=== PATIENT | female | born 1970 | race Caucasian/White ===

== ENCOUNTER 2020-03-28 09:08 | Outpatient (REF) | payer OTHER, SELFPAY ==
[2020-03-28 11:40] LABS: Hemoglobin 13.3 g/dl (12.0-16.0); Mean Corpuscular HGB Conc 32.4 g/dl (31.0-35.0); Mean Corpuscular Hemoglobin 30.3 pg (27.0-33.0); Mean Corpuscular Volume 93.4 fL (80-98); Mean Platelet Volume 9.1 fL (9.4-12.3); Platelet Count 271 X10*3/uL (160-400); Red Blood Count 4.39 X10*6/uL (4.20-5.50); Red Cell Distribution Width 12.4 % (11.0-16.0); White Blood Count 7.6 X10*3/uL (4.8-10.8)
[2020-03-28 12:02] LABS: Glucose Urine UA NEG (NEG); Leukocyte Esterase Urine NEG (NEG); Nitrite Urine NEG (NEG); PH 5.5 (5.0-8.0); Specific Gravity - Urine >= 1.030 (1.005-1.025); Urine Blood NEG (NEG); Urine Ketones NEG (NEG); Urine Protein NEG (NEG-TRACE)
[2020-03-28 12:05] LABS: Appearance Urine HAZY; Color Urine YELLOW
[2020-03-28 12:18] LABS: Alanine Aminotransferase 45 U/L (0-31); Albumin Level 4.2 g/dL (3.5-5.0); Alkaline Phosphatase 111 U/L (39-117); Anion Gap 16 (12-20); Aspartate Amino Transferase 30 U/L (5-31); Blood Urea Nitrogen 13 mg/dL (9-16); Calcium 9.3 mg/dL (8.4-10.2); Carbon Dioxide 27 mmol/L (22-29); Chloride 102 mmol/L (96-108); Cholesterol 157 mg/dL; Estimated Glomerular Filt Rate > 60; Glucose Fasting 83 mg/dL (60-99); HDL Cholesterol 68 mg/dL; LDL Cholesterol Calculated 78 mg/dl; Potassium 4.9 mmol/l (3.3-5.1); Sodium 140 mmol/L (135-145); Total Protein 7.2 g/dL (6.5-8.0); Triglycerides 57 mg/dL
[2020-03-28 12:25] LABS: Mucus Urine 3+ /LPF; RBC Urine 0 /HPF (0); Squamous Epithelial Cell Urine 1+ /LPF; WBC Urine 0 /HPF (0-4)
== END 2020-03-28 09:09 | disposition home or self-care (01) ==
LOC: HO.HMGCLDS 09:08
PROVIDERS: PCP Internal Medicine; Visit Provider Internal Medicine
DX: Z00.00 Encounter for general adult medical examination without abnormal findings (principal); F41.9 Anxiety disorder, unspecified
CPT/HCPCS: 36415; 80053; 80061; 81001; 84443; 85027

== ENCOUNTER 2020-07-08 07:48 | Outpatient (REF) | payer OTHER, SELFPAY ==
[2020-07-08 09:49] LABS: Alanine Aminotransferase 38 U/L (0-31); Albumin Level 3.8 g/dL (3.5-5.0); Alkaline Phosphatase 100 U/L (39-117); Aspartate Amino Transferase 22 U/L (5-31); Bilirubin Direct 0.5 mg/dL (0.0-0.5); Bilirubin Total 1.3 mg/dL (0.0-1.0); Total Protein 6.5 g/dL (6.5-8.0)
== END 2020-07-08 07:49 | disposition home or self-care (01) ==
LOC: HO.10HDL 07:48
PROVIDERS: Visit Provider Internal Medicine
DX: R94.5 Abnormal results of liver function studies (principal)
CPT/HCPCS: 36415; 80076

== ENCOUNTER → 2020-07-14 14:31 | Outpatient (BNVA) | payer OTHER, SELFPAY | PROVIDERS: PCP Internal Medicine; Visit Provider Internal Medicine Cardiovascular Disease | DX: I47.2 Ventricular tachycardia (principal); I25.10 Atherosclerotic heart disease of native coronary artery without angina pectoris | CPT/HCPCS: 93005 ==

== ENCOUNTER → 2021-07-17 15:10 | Outpatient (BNVA) | payer OTHER, SELFPAY | PROVIDERS: PCP Internal Medicine; Referring Provider Internal Medicine; Visit Provider Internal Medicine Cardiovascular Disease | DX: I47.2 Ventricular tachycardia (principal); I25.10 Atherosclerotic heart disease of native coronary artery without angina pectoris; R07.89 Other chest pain | CPT/HCPCS: 93005 ==

== ENCOUNTER 2021-09-30 12:07 | Outpatient (REF) | payer OTHER, SELFPAY ==
[2021-09-30 13:25] LABS: Hematocrit 37.8 % (37.0-47.0); Hemoglobin 12.6 g/dl (12.0-16.0); Mean Corpuscular HGB Conc 33.3 g/dl (31.0-35.0); Mean Corpuscular Hemoglobin 30.3 pg (27.0-33.0); Mean Corpuscular Volume 90.9 fL (80.0-98.0); Mean Platelet Volume 9.4 fL (9.4-12.3); Platelet Count 268 X10*3/uL (160-400); Red Blood Count 4.16 X10*6/uL (4.20-5.50); Red Cell Distribution Width 12.4 % (11.0-16.0); White Blood Count 7.2 X10*3/uL (4.8-10.8)
[2021-09-30 13:33] LABS: Alanine Aminotransferase 34 U/L (0-31); Alkaline Phosphatase 125 U/L (39-117); Anion Gap 13 (12-20); Aspartate Amino Transferase 24 U/L (5-31); Bilirubin Total 1.4 mg/dL (0.0-1.0); Blood Urea Nitrogen 10 mg/dL (9-16); Calcium 9.3 mg/dL (8.4-10.2); Carbon Dioxide 26 mmol/L (22-29); Chloride 104 mmol/L (96-108); Cholesterol 144 mg/dL; Estimated Glomerular Filt Rate > 60; Glucose Fasting 82 mg/dL (60-99); HDL Cholesterol 54 mg/dL; LDL Cholesterol Calculated 77 mg/dl; Potassium 4.5 mmol/L (3.3-5.1); Sodium 138 mmol/L (135-145); Triglycerides 68 mg/dL
[2021-09-30 13:34] LABS: Appearance Urine HAZY; Color Urine YELLOW; Glucose Urine UA NEG (NEG); Leukocyte Esterase Urine NEG (NEG); Nitrite Urine NEG (NEG); Specific Gravity - Urine >= 1.030 (1.005-1.025); Urine Blood NEG (NEG); Urine Ketones NEG (NEG); Urine Protein NEG (NEG-TRACE)
[2021-09-30 13:50] LABS: Bacteria Urine 3+ /LPF; Squamous Epithelial Cell Urine 3+ /LPF
== END 2021-09-30 12:08 | disposition home or self-care (01) ==
LOC: HO.HMGCLDS 12:07
PROVIDERS: PCP Internal Medicine; Visit Provider Internal Medicine
DX: Z00.00 Encounter for general adult medical examination without abnormal findings (principal); I25.10 Atherosclerotic heart disease of native coronary artery without angina pectoris; R00.2 Palpitations
CPT/HCPCS: 36415; 80053; 80061; 81001; 84443; 85027

== ENCOUNTER 2021-12-15 08:00 | Outpatient (RCR) | payer OTHER, SELFPAY ==
--- NOTE | 2022-02-13 09:56 | MHC.PT.DC ---
[facility] [place] Office [place] Office [place] Office [address] Minna Lopez [address] [phone] F: [phone] F: [phone] F: [phone] F: [phone] Physical Therapy Discharge Report Diagnosis: NECK AND SHOULDER PAIN (KP0 Date of Surgery: Date of Evaluation: 11/07/21 Date of Discharge: 01/11/22 Treatments to Date: 9 Cancellations to Date: 3 No Shows to Date: 0 Discharge Status: Patient Elected to Stop Discharge Summary: Magdalena was progressing well with PT, had to cancel last scheduled appointments and we have no heard back from her so she is dced at this time. She does have a comprehensive home exercise program which she can continue independently. Electronically signed by: Suzy Mccurdy PT, DPT Please sign and return to therapist. Thank you for your referral.
== END 2022-02-13 09:56 | disposition home or self-care (01) ==
LOC: HO.PT 08:00
PROVIDERS: PCP Internal Medicine; Visit Provider Internal Medicine
DX: M54.2 Cervicalgia (principal)
CPT/HCPCS: 97110; 97140; 97162; 97530

== ENCOUNTER 2022-05-18 10:40 | Outpatient (REF) | payer OTHER, SELFPAY ==
[2022-05-18 12:47] LABS: Alanine Aminotransferase 32 U/L (0-31); Albumin Level 4.1 g/dL (3.5-5.0); Alkaline Phosphatase 125 U/L (39-117); Anion Gap 13 (12-20); Aspartate Amino Transferase 26 U/L (5-31); Bilirubin Total 1.1 mg/dL (0.0-1.0); Blood Urea Nitrogen 14 mg/dL (9-16); Calcium 9.4 mg/dL (8.4-10.2); Carbon Dioxide 27 mmol/L (22-29); Chloride 106 mmol/L (96-108); Cholesterol 169 mg/dL; Estimated Glomerular Filt Rate > 60; Glucose Fasting 87 mg/dL (60-99); HDL Cholesterol 65 mg/dL; Potassium 4.9 mmol/L (3.3-5.1); Sodium 141 mmol/L (135-145); Total Protein 7.1 g/dL (6.5-8.0)
[2022-05-18 12:48] LABS: LDL Cholesterol Calculated 89 mg/dl; Triglycerides 75 mg/dL
[2022-05-19 22:28] LABS: CRP High Sensitivity 1.5 mg/L
[2022-05-21 09:43] LABS: HBc Num1 0.06 S/CO (0.00-0.79); Hepatitis B Core Antibody Nonreactive (Nonreactive); Hepatitis B Surface Antigen Negative (Negative); ~HepC Num1 0.12 S/CO (0.00-0.79); ~Hepatitis B Surface Antibody NONREACTIVE (Nonreactive); ~Hepatitis C Antibody Nonreactive (Nonreactive)
== END 2022-05-18 10:41 | disposition home or self-care (01) ==
LOC: HO.LAB 10:40
PROVIDERS: PCP Internal Medicine; Visit Provider Internal Medicine
DX: R79.89 Other specified abnormal findings of blood chemistry (principal); E78.5 Hyperlipidemia, unspecified
CPT/HCPCS: 36415; 80053; 80061; 86141; 86704; 86706; 86803; 87340

== ENCOUNTER 2022-05-31 08:56 | Outpatient (REF) | payer OTHER, SELFPAY ==
--- NOTE | ~2022-05-31 | US_ITS ---
EXAMINATION: US ABDOMEN COMPLETE CLINICAL INFORMATION: Other specified abnormal findings of blood chemistry. COMPARISON: None TECHNIQUE: Real-time imaging of the abdominal viscera. FINDINGS: PANCREAS: Normal. ABDOMINAL AORTA: The proximal, mid, and distal segments are normal in caliber. INFERIOR VENA CAVA: Visualized portions are normal. LIVER: The liver is normal in size. The liver contour is normal. There is diffuse increased liver parenchymal echogenicity. No focal hepatic lesion. There is no intrahepatic biliary duct dilatation seen. GALLBLADDER: Normal. The gallbladder is physiologically distended without evidence of stones, sludge, polyps, wall thickening or pericholecystic fluid. COMMON BILE DUCT: Normal in caliber measuring 0.4 cm in diameter. RIGHT KIDNEY: Normal. No hydronephrosis. No renal calculi or focal parenchymal lesions. The kidney measures 11.9 cm in maximum dimension. LEFT KIDNEY: Normal. No hydronephrosis. No renal calculi or focal parenchymal lesions. The kidney measures 10.2 cm in maximum dimension. SPLEEN: Normal. The spleen measures 9.9 cm in maximum dimension. FREE FLUID: None. US/US abdomen complete IMPRESSION: There is generalized increase in hepatic echotexture, consistent with fatty infiltration or hepatocellular disease. Please correlate clinically. No focal hepatic mass or intrahepatic biliary dilatation is seen.
== END 2022-05-31 08:57 | disposition home or self-care (01) ==
LOC: HO.HMGCX 08:56
PROVIDERS: PCP Internal Medicine; Visit Provider Internal Medicine
DX: R79.89 Other specified abnormal findings of blood chemistry (principal)
CPT/HCPCS: 76700

== ENCOUNTER → 2022-07-25 10:13 | Outpatient (BNVA) | payer OTHER, SELFPAY | PROVIDERS: PCP Internal Medicine; Referring Provider Internal Medicine; Visit Provider Internal Medicine Cardiovascular Disease | DX: I25.10 Atherosclerotic heart disease of native coronary artery without angina pectoris (principal); I47.20 Ventricular tachycardia, unspecified | CPT/HCPCS: 93005 ==

== ENCOUNTER → 2022-08-01 07:55 | Outpatient (REF) | payer OTHER, SELFPAY ==
--- NOTE | 2022-08-01 07:57 | CA_ITS ---
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 The visually estimated ejection fraction is between 60-65%. Spectral Doppler is indicative of a normal filling pattern. Peak GLS is -22.7%, within normal limits. Right Ventricle Normal right ventricular cavity size and systolic function. Atria The left atrium is likely dilated. There is lipomatous hypertrophy of the interatrial septum. There is no evidence of interatrial shunt. The right atrium is normal in size. Aortic Valve Normal aortic valve structure and function. There is no aortic valve stenosis. There is no aortic valve regurgitation. Mitral Valve Normal mitral valve structure and function. There is trace mitral valve regurgitation. There is no mitral valve stenosis. Pulmonic Valve The pulmonic valve is likely normal. There is trace pulmonic valve regurgitation. Tricuspid Valve Normal tricuspid valve structure. There is trace tricuspid valve regurgitation. The right ventricular systolic pressure is normal. The right ventricular systolic pressure is 21 mmHg. Normal right atrial pressure. There is no evidence of pulmonary hypertension. Great Vessels All visible segments of the aorta are normal in size. The pulmonary artery was not well visualized. Venous The inferior vena cava is normal in size and collapses greater than 50% with inspiration. Pericardium/Pleural There is no evidence of pericardial effusion. Measurements 2D Linear Measurements RVIDd: 3.45 RVIDd Index: 1.84 IVSd: 1.08 0.6-0.9/0.6-1.0 cm LVIDd: 4.15 3.9-5.3/4.2-5.9 cm LVIDd Index: 2.22 2.4-3.2/2.2-3.1 cm/m2 LVIDs: 2.81 2.0-3.6 cm LVPWd: 1.02 0.7-1.1 cm Ao Root: 3.60 2.1-3.5 cm LA Diam: 3.10 2.7-3.8/3.0-4.0 cm LAIDs Index: 1.66 1.5-2.3 cm/m2 LV Mass: 179.57 67-162/88-224 g LV Mass Index: 96.03 43-95/49-115 g/m2 LVOT Diam: 2.20 3.0+(-)1.3 cm 2D Systolic Function EF 4C: 62.20 >55% EF 2C: 53.90 >55% EF BiP: 58.80 >55% Mitral Valve MV Pk E: 0.72 MV PK A: 0.66 MV Decel Time: 192.00 E/A: 1.10 E'Lateral: 11.60 E'Medial: 8.27 E/E' Med: 8.70 E/E' Lat: 6.20 PHT: 56.00 MVA PHT: 3.93 Decel [place]: 3.77 Aortic Valve AoV Pk Ministerio: 1.33 AoV Mn Ministerio: 0.88 AoV VTI: 0.34 AoV Pk Grad: 7.00 Aov Mn Grad: 4.00 JAVIER Cont.VTI: 2.52 LVOT LVOT Pk Ministerio: 1.04 LVOT Mn Ministerio: 0.57 LVOT VTI: 0.23 LVOT Pk Grad: 4.00 LVOT Mn Grad: 2.00 LVOT Diam: 2.20 LVOT Area: 3.80 Diastolic Function MV Pk E: 0.72 MV Pk A: 0.66 E/A: 1.10 E'Medial: 8.27 E/E' Med: 8.70 E' Laterial: 11.60 E/E' Lat: 6.20 Right Ventricle TAPSE (mm): 27.00 TVS' Ministerio: 12.00 Tricuspid Valve TR Pk Ministerio: 2.10 TR Pk Grad: 18.00 RA Press: 3.00 RVSP: 21.00 Great Vessels Aorta Ao Root-2D: 3.60 2.0-3.7 cm Ao Asc: 3.30 2.1-3.4 cm Ao Arch: 2.60 Pulmonary Valve PV Pk Ministerio: 0.77 Peak PV Grad: 2.00 Updated in Other Vendor System with Status of Final Justyn Durán MD electronically signed on 08/01/2022 1:07:08 PM with status of Final
== END ==
LOC: HO.CARD 07:55
PROVIDERS: PCP Internal Medicine; Visit Provider Internal Medicine Cardiovascular Disease
DX: R94.31 Abnormal electrocardiogram [ECG] [EKG] (principal)
CPT/HCPCS: 93306; 93356

== ENCOUNTER 2022-11-23 10:02 | Outpatient (AMB) | payer OTHER, SELFPAY ==
[2022-11-23 10:03] VITALS: BP 104/70; PULSE 59; O2SAT 96; BMI 28.5
--- NOTE | 2022-11-23 10:03 | A.OFFPC_ITS ---
Vital Signs 11/23/22 10:03 Height 5 ft 5 in Weight 171 lb BMI 28.5 BP 104/70 Blood Pressure Location Lt brachial Position Sitting Pulse 59 Pulse Source Pulse Oximeter Pulse Oximetry (%) 96 Oxygen Delivery Method Room Air Intake Visit Reasons: 6 month follow up Intake Note: Pt dayanara today for 6 months follow up visit. Allergies No Known Allergies [No Known Allergies*] Allergy (Verified 11/23/22 10:04) Medication List - Last Reconciled 11/23/22 by Marily Ramos MD aspirin (Ecotrin Low Strength) 81 mg PO DAILY atorvastatin 80 mg PO DAILY escitalopram oxalate 15 mg PO DAILY lorazepam 0.25 mg PO BID PRN propranolol ER 60 mg PO DAILY Tobacco use date assessed: 11/23/22 Dental Screening Dental Screen Date: 11/23/22 Did you have a dental visit in the last 12 months?: Yes Did you have a dental problem in the last 6 months where you did not have access to dental care?: No Was dental information given to patient?: Patient has dentist HPI 6 month follow up HPI Details Patient presents for the follow-up of hyperlipidemia chronic anxiety and nonsustained SVT. Patient follows up with Cardiology and had a normal echocardiogram last month. [facility] Medical History Annual physical exam Anxiety disorder Coronary artery disease Cubital tunnel syndrome Elevated LFTs Mammogram normal Neck pain Normal Pap smear NSVT (nonsustained ventricular tachycardia) Palpitations Family History Father CAD (coronary artery disease) Myocardial infarction CVD (cardiovascular disease) Mother COPD (chronic obstructive pulmonary disease) Smoker Breast cancer Maternal Grandfather CAD (coronary artery disease) CVD (cardiovascular disease) Maternal Grandmother Breast cancer Paternal Grandfather COPD (chronic obstructive pulmonary disease) Paternal Aunt CVD (cardiovascular disease) Myocardial infarction Son No problems noted. Sister No problems noted. Sister No problems noted. Sister No problems noted. 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 How often do you have a drink containing alcohol?: 2-3 times a week 2. How many drinks containing alcohol do you have on a typical day when you are drinking?: 1 or 2 3. How often do you have six or more drinks on one occasion?: Never Total Score: 3 CATHI-7 AMB Questionnaire CATHI-7 Date CATHI - 7 assessed: 05/21/22 Source: Developed by Drs. Lev Pfeiffer, Malu Crawford, Cain Garcia and colleagues, with an educational bina from [employer]. Review of Systems Const All systems reviewed & are unremarkable except as noted in HPI and below Reports no additional complaints Eyes Reports no additional complaints ENT Reports no additional complaints Card Reports no additional complaints Resp Reports no additional complaints GI Reports no additional complaints Reports no additional complaints Physical exam (Primary Care) Vital Signs: Last Vital Signs Pulse 59 11/23/22 10:03 BP 104/70 11/23/22 10:03 Pulse Ox 96 11/23/22 10:03 Oxygen Delivery Method Room Air 11/23/22 10:03 BMI result Body Mass Index 28.5 Tobacco/Smoking Status: Tobacco use Status Tobacco use date assessed 11/23/22 11/23/22 10:08 Patient Tobacco Use Status Current someday Tobacco 11/23/22 10:04 e-Cigarette/Vaping Use Never Used 11/23/22 10:04 Thrive Assessment: Date of Thrive Assessment Date Thrive assessed 05/21/22 11/23/22 10:04 Const General: no acute distress Neck Neck: Yes no lymphadenopathy and Yes supple Resp Effort & Inspection: normal respiratory effort Auscultation: clear to auscultation bilaterally Cardio Rhythm: regular rhythm Heart sounds: S1 normal heart sound present and S2 normal heart sound present GI Inspection: Yes normal to inspection Palpation (GI): Soft to palpation Assessment and Plan Assessment & Plan (1) Elevated LFTs: Comment: ultrasound showed fatty liver 08/02 Code(s): R79.89 - Other specified abnormal findings of blood chemistry Plan: Patient will have labs today (2) Hyperlipemia: Code(s): E78.5 - Hyperlipidemia, unspecified Plan: Continue statin (3) Coronary artery disease: Comment: nonobstructive stenosis LAD cardiac catheterization 2017, managed medically Code(s): I25.10 - Atherosclerotic heart disease of [place] coronary artery without angina pectoris Plan: Follow-up with Cardiology Orders: Orders Comprehensive [place]. Panel Fast Today E78.5 - Hyperlipidemia, unspecified, I25.10 - Atherosclerotic heart disease of [place] coronary artery without angina pectoris, R79.89 - Other specified abnormal findings of blood chemistry Gamma Glutamyl Transpeptidase Today E78.5 - Hyperlipidemia, unspecified, I25.10 - Atherosclerotic heart disease of [place] coronary artery without angina pectoris, R79.89 - Other specified abnormal findings of blood chemistry Lipid Panel Today E78.5 - Hyperlipidemia, unspecified, I25.10 - Atherosclerotic heart disease of [place] coronary artery without angina pectoris, R79.89 - Other specified abnormal findings of blood chemistry TSH reflex Free T4 Today E78.5 - Hyperlipidemia, unspecified, I25.10 - Atherosclerotic heart disease of [place] coronary artery without angina pectoris, R79.89 - Other specified abnormal findings of blood chemistry Complete Blood Count Auto Diff Today E78.5 - Hyperlipidemia, unspecified, I25.10 - Atherosclerotic heart disease of [place] coronary artery without angina pectoris, R79.89 - Other specified abnormal findings of blood chemistry Liver Kidney Microsomal Ab Today E78.5 - Hyperlipidemia, unspecified, I25.10 - Atherosclerotic heart disease of [place] coronary artery without angina pectoris, R79.89 - Other specified abnormal findings of blood chemistry Mitochondrial Antibody Today E78.5 - Hyperlipidemia, unspecified, I25.10 - Atherosclerotic heart disease of [place] coronary artery without angina pectoris, R79.89 - Other specified abnormal findings of blood chemistry FREDERICK Reflex Titer and Pattern Today E78.5 - Hyperlipidemia, unspecified, I25.10 - Atherosclerotic heart disease of [place] coronary artery without angina pectoris, R79.89 - Other specified abnormal findings of blood chemistry Coding Level of Care Code Est Pt Level 3 (18962) Diagnoses Elevated LFTs R79.89 Hyperlipemia E78.5 Coronary artery disease I25.10
== END 2022-11-23 11:33 | disposition home or self-care (01) ==
PROVIDERS: Visit Provider Internal Medicine
DX: R79.89 Other specified abnormal findings of blood chemistry (principal); E78.5 Hyperlipidemia, unspecified; I25.10 Atherosclerotic heart disease of native coronary artery without angina pectoris
CPT/HCPCS: 99213

== ENCOUNTER 2022-11-23 10:41 | Outpatient (REF) | payer OTHER, SELFPAY ==
[2022-11-23 13:25] LABS: MANUAL DIFF FLAG NO
[2022-11-23 13:37] LABS: Basophils Percent Auto 0.4 % (0-2); Eosinophils Absolute Auto 0.4 X10*3/uL (0.0-0.4); Hematocrit 40.3 % (37.0-47.0); Hemoglobin 13.3 g/dl (12.0-16.0); Imm Gran Abs Auto 0.02 X10*3/uL (0.00-0.03); Imm Gran Pct Auto 0.3 % (0.0-0.4); Lymphocytes Absolute Auto 2.7 X10*3/uL (1.2-4.9); Lymphocytes Percent Auto 38.3 % (20-40); Mean Corpuscular Volume 93.9 fL (80.0-98.0); Mean Platelet Volume 9.3 fL (9.4-12.3); Monocytes Absolute Auto 0.5 X10*3/uL (0.1-1.2); Neutrophils Absolute Auto 3.5 x10*3/uL (2.0-8.3); Platelet Count 258 X10*3/uL (160-400); Red Blood Count 4.29 X10*6/uL (4.20-5.50)
[2022-11-23 15:23] LABS: Alanine Aminotransferase 52 U/L (0-31); Albumin Level 4.1 g/dL (3.5-5.0); Alkaline Phosphatase 114 U/L (39-117); Anion Gap 11 (12-20); Aspartate Amino Transferase 33 U/L (5-31); Blood Urea Nitrogen 11 mg/dL (9-16); Carbon Dioxide 28 mmol/L (22-29); Chloride 107 mmol/L (96-108); Cholesterol 161 mg/dL; Estimated Glomerular Filt Rate > 60; Gamma Glutamyl Transpeptidase 36 U/L (7-33); Glucose Fasting 76 mg/dL (60-99); HDL Cholesterol 59 mg/dL; LDL Cholesterol Calculated 86 mg/dl; Potassium 4.1 mmol/L (3.3-5.1); Sodium 142 mmol/L (135-145); Total Protein 7.3 g/dL (6.5-8.0); Triglycerides 81 mg/dL
[2022-11-23 15:49] LABS: TSH reflex Free T4 0.76 uIU/mL (0.32-4.0)
[2022-11-27 11:13] LABS: Mitochondrial Antibodies NEGATIVE (NEGATIVE)
[2022-11-27 15:43] LABS: Anti Nuclear Antibody Screen NEGATIVE (NEGATIVE)
[2022-11-28 22:38] LABS: Liver Kidney Microsomal Ab <=20.0 U (<=20.0)
== END 2022-11-23 10:42 | disposition home or self-care (01) ==
LOC: HO.HMGCLDS 10:41
PROVIDERS: PCP Internal Medicine; Visit Provider Internal Medicine
DX: I25.10 Atherosclerotic heart disease of native coronary artery without angina pectoris (principal); E78.5 Hyperlipidemia, unspecified; R79.89 Other specified abnormal findings of blood chemistry
CPT/HCPCS: 36415; 80053; 80061; 82977; 84443; 85025; 86038; 86255; 86256; 86376

== ENCOUNTER 2023-05-23 07:55 | Outpatient (AMB) | payer OTHER, SELFPAY ==
[2023-05-23 08:12] VITALS: BP 108/72; PULSE 67; O2SAT 96; BMI 29.6
--- NOTE | 2023-05-23 08:12 | MHC.PC.OV ---
Vital Signs 05/23/23 08:12 Height 5 ft 5 in Weight 178 lb BMI 29.6 BP 108/72 Blood Pressure Location Lt brachial Position Sitting Pulse 67 Pulse Source Pulse Oximeter Pulse Oximetry (%) 96 Oxygen Delivery Method Room Air Intake Visit Reasons: Annual PE Intake Note: Pt is here today for PE. Allergies No Known Allergies [No Known Allergies*] Allergy (Verified 05/23/23 08:15) Medication List - Last Reconciled 05/23/23 by Marily Ramos MD aspirin (Ecotrin Low Strength) 81 mg PO DAILY atorvastatin 80 mg PO DAILY escitalopram oxalate 15 mg PO DAILY lorazepam 0.25 mg PO BID PRN propranolol ER 60 mg PO DAILY Tobacco use date assessed: 05/23/23 Dental Screening Dental Screen Date: 05/23/23 Did you have a dental visit in the last 12 months?: Yes Did you have a dental problem in the last 6 months where you did not have access to dental care?: No Was dental information given to patient?: Patient has dentist HPI Annual PE HPI Details Patient presents for physical. She complains of chronic left knee pain worse when walking or standing up. Patient has been limiting with her routine exercise of jogging. She denies any recent injury but was involved with sports when she was younger. Patient denies joint swelling or erythema. [facility] Medical History Cubital tunnel syndrome Neck pain NSVT (nonsustained ventricular tachycardia) Elevated LFTs Coronary artery disease Mammogram normal Normal Pap smear Annual physical exam Anxiety disorder Palpitations Family History Father CAD (coronary artery disease) Myocardial infarction CVD (cardiovascular disease) Mother COPD (chronic obstructive pulmonary disease) Smoker Breast cancer Maternal Grandfather CAD (coronary artery disease) CVD (cardiovascular disease) Maternal Grandmother Breast cancer Paternal Grandfather COPD (chronic obstructive pulmonary disease) Paternal Aunt CVD (cardiovascular disease) Myocardial infarction Son No problems noted. Sister No problems noted. Sister No problems noted. Sister No problems noted. 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 1. Little interest or pleasure in doing things: not at all 2. Feeling down, depressed, or hopeless: not at all 3. Trouble falling or staying asleep, or sleeping too much: not at all 4. Feeling tired or having little energy: not at all 5. Poor appetite or overeating: not at all 6. Feeling bad about yourself - or that you are a failure or have let yourself or your family down: not at all 7. Trouble concentrating on things, such as reading the newspaper or watching television: not at all 8. Moving or speaking so slowly that other people could have noticed. Or the opposite - being so fidgety or restless that you have been moving around a lot more than usual: not at all 9. Thoughts that you would be better off or of hurting yourself in some way: not at all Total score: 0 Depression Screening Interpretation: Negative Depression Screening Done: Yes Source: Developed by Drs. Lev Pfeiffer, Malu Crawford, Cain Garcia and colleagues, with an educational bina from [employer]. Thrive Questionnaire Date Thrive assessed: 05/23/23 I am a: Patient What is your living situation today?: I have a steady place to live Within the past 12 months, did the food you bought not last and you didn't have the money to get more?: Never true Within the past 12 months, did you worry whether your food would run out before you got money to buy more?: Never true Do you have trouble paying for medicines?: No Do you have trouble getting transportation to medical appointments?: No Do you have trouble paying your heating and electricity bill?: No Do you have trouble taking care of your child, family member or friend?: No Do you have trouble with day-to-day activities such as bathing, preparing meals, shopping, managing finances, etc.?: No Are you currently unemployed and looking for a job?: No Are you interested in more education?: No Please select the resources that you would like help with: None AUDIT C Alcohol Use Questionnaire (AUDIT-C) 1. How often do you have a drink containing alcohol?: 2-3 times a week 2. How many drinks containing alcohol do you have on a typical day when you are drinking?: 3 or 4 3. How often do you have six or more drinks on one occasion?: Less than monthly Total Score: 5 CATHI-7 AMB Questionnaire CATHI-7 Date CATHI - 7 assessed: 05/23/23 Feeling nervous, anxious, or on edge: 1 = Several days Not being able to stop or control worryin = Several days Worrying too much about different things: 1 = Several days Trouble relaxin = Not at all Being so restless that it is hard to sit still: 0 = Not at all Becoming easily annoyed or irritable: 1 = Several days Feeling afraid as if something awful might happen: 1 = Several days Total CATHI-7 score (0-4 normal; 5-9 mild; 10-14 moderate; 15-21 severe): 5 Source: Developed by Drs. Lev Pfeiffer, Malu Crawford, Cain Garcia and colleagues, with an educational bina from [employer]. Review of Systems Const All systems reviewed & are unremarkable except as noted in HPI and below Reports no additional complaints Eyes Reports no additional complaints ENT Reports no additional complaints Card Reports no additional complaints Resp Reports no additional complaints GI Reports no additional complaints Reports no additional complaints Physical exam (Primary Care) Vital Signs: Last Vital Signs Pulse 67 05/23/23 08:12 BP 108/72 05/23/23 08:12 Pulse Ox 96 05/23/23 08:12 Oxygen Delivery Method Room Air 05/23/23 08:12 BMI result Body Mass Index 29.6 Tobacco/Smoking Status: Tobacco use Status Tobacco use date assessed 05/23/23 05/23/23 08:18 Patient Tobacco Use Status Former Tobacco user 05/23/23 08:18 e-Cigarette/Vaping Use Never Used 05/23/23 08:13 PHQ-9: PHQ-9 Score PHQ-9: Total score 0 05/23/23 08:22 Depression Screening Interpretation: Negative Thrive Assessment: Date of Thrive Assessment Date Thrive assessed 05/23/23 05/23/23 08:22 Const General: no acute distress HENMT Head: Yes normal to inspection Ears: hearing grossly normal bilaterally Face and sinus: Yes normal facial exam Throat: Yes posterior oropharynx normal Eyes General: appearance normal, both eyes and all related structures Neck Neck: Yes no lymphadenopathy and Yes supple Resp Effort & Inspection: normal respiratory effort Auscultation: clear to auscultation bilaterally Cardio Rhythm: regular rhythm Heart sounds: S1 normal heart sound present and S2 normal heart sound present GI Inspection: Yes normal to inspection Palpation (GI): Soft to palpation Percussion: Yes normal to percussion Auscultation: normal bowel sounds Extrem Other: There has a decreased range of motion the left knee no soft tissue swelling erythema warmth or tenderness General: Yes no clubbing, cyanosis or edema Assessment and Plan Assessment & Plan (1) Knee pain, left: Code(s): M25.562 - Pain in left knee Plan: For chronic left knee pain check x-rays and patient was advised to start regular biking exercises. If the pain persist she will be referred to physical therapy (2) Hyperlipemia: Comment: The goal of LDL less than 70 Code(s): E78.5 - Hyperlipidemia, unspecified Plan: Continue high dose of statin, patient will return for fasting lipid profile. She will follow-up with Cardiology in July (3) Elevated LFTs: Comment: ultrasound showed fatty liver 08/02 Code(s): R79.89 - Other specified abnormal findings of blood chemistry Plan: Cutting down on alcohol intake avoid [id number] NSAIDs and weight loss discussed with patient. 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 Panel Fast Today E78.5 - Hyperlipidemia, unspecified, R79.89 - Other specified abnormal findings of blood chemistry Complete Blood Count Auto Diff Today E78.5 - Hyperlipidemia, unspecified, R79.89 - Other specified abnormal findings of blood chemistry Lipid Panel Today E78.5 - Hyperlipidemia, unspecified, R79.89 - Other specified abnormal findings of blood chemistry TSH reflex Free T4 Today E78.5 - Hyperlipidemia, unspecified Coding Level of Care Code Est Pt Prev Care 40-64y(94811) Diagnoses Knee pain, left M25.562 Hyperlipemia E78.5 Elevated LFTs R79.89 Annual physical exam Z00.00
== END 2023-05-23 09:37 | disposition home or self-care (01) ==
PROVIDERS: PCP Internal Medicine; Visit Provider Internal Medicine
DX: M25.562 Pain in left knee (principal); E78.5 Hyperlipidemia, unspecified; R79.89 Other specified abnormal findings of blood chemistry; Z00.00 Encounter for general adult medical examination without abnormal findings
CPT/HCPCS: 99396

== ENCOUNTER 2023-07-25 10:34 | Outpatient (REF) | payer OTHER, SELFPAY ==
[2023-07-25 10:49] LABS: MANUAL DIFF FLAG NO
[2023-07-25 11:55] LABS: Basophils Percent Auto 0.6 % (0-2); Eosinophils Absolute Auto 0.3 X10*3/uL (0.0-0.4); Eosinophils Percent Auto 4.3 % (0-4); Hematocrit 39.1 % (37.0-47.0); Hemoglobin 13.3 g/dl (12.0-16.0); Imm Gran Abs Auto 0.01 X10*3/uL (0.00-0.03); Imm Gran Pct Auto 0.1 % (0.0-0.4); Lymphocytes Absolute Auto 3.2 X10*3/uL (1.2-4.9); Lymphocytes Percent Auto 46.3 % (20-40); Mean Corpuscular Hemoglobin 31.3 pg (27.0-33.0); Mean Platelet Volume 8.9 fL (9.4-12.3); Monocytes Absolute Auto 0.4 X10*3/uL (0.1-1.2); Monocytes Percent Auto 6.5 % (2-11); Neutrophils Absolute Auto 2.9 x10*3/uL (2.0-8.3); Neutrophils Percent Auto 42.2 % (45-73); Platelet Count 240 X10*3/uL (160-400); Red Blood Count 4.25 X10*6/uL (4.20-5.50); Red Cell Distribution Width 12.3 % (11.0-16.0); White Blood Count 6.8 X10*3/uL (4.8-10.8)
[2023-07-25 12:27] LABS: Alanine Aminotransferase 56 U/L (0-31); Albumin Level 3.9 g/dL (3.5-5.0); Alkaline Phosphatase 122 U/L (39-117); Anion Gap 12 (12-20); Aspartate Amino Transferase 39 U/L (5-31); Blood Urea Nitrogen 8 mg/dL (9-16); Calcium 9.1 mg/dL (8.4-10.2); Carbon Dioxide 26 mmol/L (22-29); Chloride 108 mmol/L (96-108); Cholesterol 146 mg/dL (<200); Estimated Glomerular Filt Rate > 60; Glucose Fasting 71 mg/dL (60-99); HDL Cholesterol 58 mg/dL (>40); LDL Cholesterol Calculated 72 mg/dL (<100); Potassium 4.2 mmol/L (3.3-5.1); Sodium 142 mmol/L (135-145); Triglycerides 81 mg/dL (<150)
[2023-07-25 12:46] LABS: TSH reflex Free T4 0.88 uIU/mL (0.32-4.0)
[2023-07-26 09:48] LABS: LDL Cholesterol Direct 72 mg/dL (<100)
== END 2023-07-25 10:35 | disposition home or self-care (01) ==
LOC: HO.LAB 10:34
PROVIDERS: PCP Internal Medicine; Visit Provider Internal Medicine
DX: E78.5 Hyperlipidemia, unspecified (principal); R79.89 Other specified abnormal findings of blood chemistry
CPT/HCPCS: 36415; 80053; 80061; 83721; 84443; 85025

== ENCOUNTER 2023-07-29 08:24 | Outpatient (AMB) | payer OTHER, SELFPAY ==
[2023-07-29 08:33] VITALS: BP 110/70; PULSE 62; BMI 29.0
--- NOTE | 2023-07-29 08:33 | A.OFFVIS_ITS ---
Intake Vital Signs 07/29/23 08:33 Height 5 ft 5 in Weight 174 lb 2.643 oz BMI 29.0 BP 110/70 Blood Pressure Location Lt brachial Position Sitting Pulse 62 Intake Visit Reasons: 1 yr f/up lipids Intake Note: 1 year follow-up with ekg Line Out Man Required: No Allergies No Known Allergies [No Known Allergies*] Allergy (Verified 05/23/23 08:15) HPI HPI Comments History of Present Illness Details Sally comes for follow-up. Overall she has been doing well. She says that she has not been exercising as regularly as she has in the past. She does have knee issues from prior running. Otherwise she is able to maintain activity level without any restriction. Denies any chest pain. She says when she stretches her chest backwards, she does get some cracking and discomfort in his chest in the sternal area. But no chest tightness or pain with exertion or activity. Takes all her medications. Last LDL has improved to 72, she says this is related to improve diet. [facility] Medical History Cubital tunnel syndrome Neck pain NSVT (nonsustained ventricular tachycardia) Elevated LFTs Coronary artery disease Mammogram normal Normal Pap smear Annual physical exam Anxiety disorder Palpitations Family History Father CAD (coronary artery disease) Myocardial infarction CVD (cardiovascular disease) Mother COPD (chronic obstructive pulmonary disease) Smoker Breast cancer Maternal Grandfather CAD (coronary artery disease) CVD (cardiovascular disease) Maternal Grandmother Breast cancer Paternal Grandfather COPD (chronic obstructive pulmonary disease) Paternal Aunt CVD (cardiovascular disease) Myocardial infarction Son No problems noted. Sister No problems noted. Sister No problems noted. Sister No problems noted. 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 Housing: House Alcohol intake: current Alcohol intake frequency: a few times a week Alcohol type: wine Patient Tobacco Use Status: Former Tobacco user e-Cigarette/Vaping Use: Never Used service: No Current occupational status: employed Cognitive needs: No Hearing needs: No Vision needs: Yes Review of Systems Const Denies chills, Denies fatigue, Denies fever(s), Denies frequent falls, Denies weakness, Denies weight gain and Denies weight loss ENT Denies dizziness Card Denies chest pain, Denies leg edema, Denies lightheadedness, Denies palpitations, Denies dyspnea, Denies dyspnea on exertion, Denies orthopnea and Denies other (loss of consciousness) Resp Denies cough, Denies dyspnea and Denies dyspnea on exertion GI Denies hematochezia and Denies change in stool character Musc Denies abnormal gait, Denies muscle weakness, Denies numbness, Denies radiating pain into limb and Denies tingling Neuro Denies abnormal gait, Denies dizziness, Denies frequent falls, Denies numbness, Denies tingling and Denies weakness Endo Denies fatigue and Denies palpitations Physical Exam Vital Signs: Last Vital Signs Pulse 62 07/29/23 08:33 BP 110/70 07/29/23 08:33 BMI result Body Mass Index 29.0 Const General: cooperative, comfortable, no acute distress, alert and awake Nutritional Appearance: average body habitus Orientation/consciousness: patient oriented x3 Limitations: no limitations Neck Neck: Yes trachea midline, Yes supple and Yes no JVD Resp Effort & Inspection: normal respiratory effort Auscultation: clear to auscultation bilaterally Cardio Jugular venous distension: no JVD Palpation: normal PMI Rate: regular rate Rhythm: regular rhythm Heart sounds: S1 normal heart sound present and S2 normal heart sound present GI Auscultation: normal bowel sounds Skin General skin exam: no rashes or lesions noted Neuro General: patient oriented x3 and no focal motor deficits Extrem General: Yes no clubbing, cyanosis or edema Psych Appearance: grossly normal Office Procedures EKG Details: EKG shows normal sinus rhythm with T-wave inversions in the anterior anterolateral leads. There is slightly more prominent than before [id number], Complete Assessment & Plan Assessment & Plan (1) Coronary artery disease: Comment: nonobstructive stenosis LAD cardiac catheterization 2017, managed medically Code(s): I25.10 - Atherosclerotic heart disease of [place] coronary artery without angina pectoris Plan: Coronary artery disease nonobstructive by cardiac catheterization in the LAD territory with EKG changes although no new symptoms with exertion. Her echocardiogram last year was within normal limits. Given that she has no new symptoms with good activity level at this point time I would continue medical therapy. Continue low-dose aspirin therapy. Continue high-intensity statin therapy with target goal LDL closer to 70 mg/dL. Better optimized advised to continue to maintain activity level as tolerated. (2) NSVT (nonsustained ventricular tachycardia): Code(s): I47.2 - Ventricular tachycardia Plan: Prior history of nonsustained VT without any obvious clear clinical recurrence. Avoidance of stimulants was discussed. Stress mitigation strategies was discussed. Continue propranolol therapy. She is tolerating this well. Will follow up in the clinic in 1 year's time, sooner p.r.n.. Thank you for allowing me to partake in the care Coding Level of Care Code Est Pt Level 4 (98462) Diagnoses Coronary artery disease I25.10 NSVT (nonsustained ventricular tachycardia) I47.2 CPT Codes EKG - CPT: 25527-Iyegkeokcwrhhitau, Complete ([id number])
== END 2023-07-29 08:59 | disposition home or self-care (01) ==
PROVIDERS: Visit Provider Internal Medicine Cardiovascular Disease
DX: I25.10 Atherosclerotic heart disease of native coronary artery without angina pectoris (principal); I47.20 Ventricular tachycardia, unspecified
CPT/HCPCS: 93010; 99214

== ENCOUNTER → 2023-07-29 08:24 | Outpatient (BNVA) | payer OTHER, SELFPAY | PROVIDERS: Visit Provider Internal Medicine Cardiovascular Disease | DX: I25.10 Atherosclerotic heart disease of native coronary artery without angina pectoris (principal); I47.20 Ventricular tachycardia, unspecified | CPT/HCPCS: 93005 ==

== ENCOUNTER → 2024-07-23 23:59 | Outpatient (BNV) | payer OTHER, SELFPAY | PROVIDERS: PCP Internal Medicine; Visit Provider Internal Medicine Cardiovascular Disease | DX: I21.4 Non-ST elevation (NSTEMI) myocardial infarction (principal) | CPT/HCPCS: 93458; 99152 ==

== ENCOUNTER 2024-07-28 13:58 | Outpatient (AMB) | payer OTHER, SELFPAY ==
[2024-07-28 14:01] VITALS: BP 108/64; PULSE 64; RESP 18; TEMP 37.3; O2SAT 97; BMI 29.0
--- NOTE | 2024-07-28 14:01 | A.OFFPC_ITS ---
Vital Signs 07/28/24 14:01 Height 5 ft 5 in Weight 174 lb BMI 29.0 BP 108/64 Blood Pressure Location Lt brachial Position Sitting Respiration 18 Pulse 64 Pulse Source Pulse Oximeter Temp 99.1 F Temp Source Oral Pulse Oximetry (%) 97 Oxygen Delivery Method Room Air Intake Visit Reasons: ER follow up Intake Note: Pt is here today for Hospital follow up visit. Allergies No Known Allergies [No Known Allergies*] Allergy (Verified 07/28/24 14:04) Medication List - Last Reconciled 07/28/24 by Marily Ramos MD amlodipine 2.5 mg PO DAILY aspirin (Ecotrin Low Strength) 81 mg PO DAILY atorvastatin 80 mg PO DAILY escitalopram oxalate 15 mg PO DAILY lorazepam 0.5 mg PO BID PRN propranolol ER 60 mg PO DAILY Tobacco use date assessed: 07/28/24 Dental Screening Dental Screen Date: 07/28/24 Did you have a dental visit in the last 12 months?: Yes Did you have a dental problem in the last 6 months where you did not have access to dental care?: No Was dental information given to patient?: Patient has dentist HPI ER follow up HPI Details Pt presents for a follow-up hospitalization at [facility] then transferred to [facility] for question of vasovagal episodes with transitional ST elevation in anterior leads and elevated troponin. Patient had negative cardiac cath and normal echocardiogram at [facility]. She was discharged home on amlodipine. Pt reports being under a lot of stress, work related and feeling overwhelmed and anxious. Patient used to see a counselor who retired recently. She used to exercise but stopped because of her family and work related difficulty. She is established with psychiatric prescriber and has been taking escitalopram for 2 years. Patient denies insomnia or suicide ideation. She has been drinking every night 1-2 glasses of wine to relax and would like to cut down on alcohol intake. [facility] Medical History (Updated 07/28/24 @ 15:11 by Marily Ramos MD) Cubital tunnel syndrome Neck pain NSVT (nonsustained ventricular tachycardia) Elevated LFTs Coronary artery disease Mammogram normal Normal Pap smear Annual physical exam Anxiety disorder Palpitations Family History Father CAD (coronary artery disease) Myocardial infarction CVD (cardiovascular disease) Mother COPD (chronic obstructive pulmonary disease) Smoker Breast cancer Maternal Grandfather CAD (coronary artery disease) CVD (cardiovascular disease) Maternal Grandmother Breast cancer Paternal Grandfather COPD (chronic obstructive pulmonary disease) Paternal Aunt CVD (cardiovascular disease) Myocardial infarction Son No problems noted. Sister No problems noted. Sister No problems noted. Sister No problems noted. 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 1. Little interest or pleasure in doing things: not at all 2. Feeling down, depressed, or hopeless: not at all 3. Trouble falling or staying asleep, or sleeping too much: not at all 4. Feeling tired or having little energy: not at all 5. Poor appetite or overeating: not at all 6. Feeling bad about yourself - or that you are a failure or have let yourself or your family down: not at all 7. Trouble concentrating on things, such as reading the newspaper or watching television: not at all 8. Moving or speaking so slowly that other people could have noticed. Or the opposite - being so fidgety or restless that you have been moving around a lot more than usual: not at all 9. Thoughts that you would be better off or of hurting yourself in some way: not at all Total score: 0 Depression Screening Interpretation: Negative Depression Screening Done: Yes 02151 - PHQ-9 Billing: Yes Source: Developed by Drs. Lev Pfeiffer, Malu Crawford, Cain Garcia and colleagues, with an educational bina from [employer]. Thrive Questionnaire Date Thrive assessed: 07/28/24 I am a: Patient What is your living situation today?: I choose not to answer this question Within the past 12 months, did the food you bought not last and you didn't have the money to get more?: I choose not to answer this question Within the past 12 months, did you worry whether your food would run out before you got money to buy more?: I choose not to answer this question Do you have trouble paying for medicines?: I choose not to answer this question Do you have trouble getting transportation to medical appointments?: I choose not to answer this question Do you have trouble paying your heating and electricity bill?: I choose not to answer this question Do you have trouble taking care of your child, family member or friend?: I choose not to answer this question Do you have trouble with day-to-day activities such as bathing, preparing meals, shopping, managing finances, etc.?: I choose not to answer this question Are you currently unemployed and looking for a job?: I choose not to answer this question Are you interested in more education?: I choose not to answer this question THRIVE Score: 0 AUDIT C Alcohol Use Questionnaire (AUDIT-C) 1. How often do you have a drink containing alcohol?: Monthly or less 2. How many drinks containing alcohol do you have on a typical day when you are drinking?: 3 or 4 3. How often do you have six or more drinks on one occasion?: Less than monthly Total Score: 3 CATHI-7 AMB Questionnaire CATHI-7 Date CATHI - 7 assessed: 07/28/24 Feeling nervous, anxious, or on edge: 0 = Not at all Not being able to stop or control worryin = Not at all Worrying too much about different things: 0 = Not at all Trouble relaxin = Not at all Being so restless that it is hard to sit still: 0 = Not at all Becoming easily annoyed or irritable: 0 = Not at all Feeling afraid as if something awful might happen: 0 = Not at all Total CATHI-7 score (0-4 normal; 5-9 mild; 10-14 moderate; 15-21 severe): 0 Source: Developed by Drs. Lev Pfeiffer, Malu Crawford, Cain Garcia and colleagues, with an educational bina from [employer]. CATHI-7 Assessment Billing CATHI-7 Assessment Tool: CATHI-7 Assessment 73615 Review of Systems Const All systems reviewed & are unremarkable except as noted in HPI and below Eyes Reports no additional complaints ENT Reports no additional complaints Card Reports no additional complaints Resp Reports no additional complaints GI Reports no additional complaints Reports no additional complaints Physical exam (Primary Care) Vital Signs: Last Vital Signs Temp 99.1 F 07/28/24 14:01 Pulse 64 07/28/24 14:01 Resp 18 07/28/24 14:01 BP 108/64 07/28/24 14:01 Pulse Ox 97 07/28/24 14:01 Oxygen Delivery Method Room Air 07/28/24 14:01 BMI result Body Mass Index 29.0 Tobacco/Smoking Status: Tobacco use Status Tobacco use date assessed 07/28/24 07/28/24 14:02 Patient Tobacco Use Status Former Tobacco user 07/28/24 14:02 e-Cigarette/Vaping Use Never Used 07/28/24 14:02 Depression Screening Interpretation: Negative Thrive Assessment: Date of Thrive Assessment Date Thrive assessed 05/23/23 07/28/24 14:02 Const General: no acute distress HENMT Ears: hearing grossly normal bilaterally Neck Neck: Yes supple Resp Effort & Inspection: normal respiratory effort Auscultation: clear to auscultation bilaterally Cardio Rhythm: regular rhythm Heart sounds: S1 normal heart sound present and S2 normal heart sound present Coding Level of Care Code Est Pt Level 4 (17894) Diagnoses Coronary artery disease I25.10 Anxiety disorder F41.9 Additional Codes CATHI-7 Assessment Billing - CATHI-7 Assessment Tool: CATHI-7 Assessment 37627 ([id number]) PHQ-9 - 53751 - PHQ-9 Billing: Yes ([id number]) Assessment & Plan Assessment & Plan (1) Coronary artery disease: Comment: nonobstructive stenosis LAD cardiac catheterization 2016, managed medically, repeat cath no change, Echo nl 07/23/2024 [facility] for + troponin , started on Amlodipine 07/23/24 Code(s): I25.10 - Atherosclerotic heart disease of [place] coronary artery without angina pectoris Category: Medical Plan: Continue current medications follow-up with the Cardiology (2) Anxiety disorder: Comment: follows up with Psychiatry Code(s): F41.9 - Anxiety disorder, unspecified Category: Medical Plan: Stress management, mindfulness, regular physical activity discussed with the patient, cutting down on alcohol intake and quitting smoking recommended She will get reestablished with a counselor and continue to follow-up with psychiatric prescriber, ? increasing the dose of Lexapro to 20 mg a day. Follow-up in 2 months
--- OUTSIDE RECORDS SUMMARY | 2024-07-28 16:44 | XMS_ITS ---
Author Organization [facility] Address [address] [place] [address] Care Team Providers Care Clean Up Supervisor Name Role Phone Amber Contreras [phone] REASON FOR VISIT MRI May 2024 Encounters Encounter Location Date Provider Diagnosis [facility] [address] [place] [address] [address] [place] [address] 09/16/2023 Amber Contreras Plan Of Treatment Next Appt Details Provider Name:Amber obando, 09/16/2024 08:20:00 AM, [address], [address], [place], [address], Progress Notes * PAULINA JACOBOOB:1970 (53 yo F)Acc No.[id number]:09/16/2023 Patient:?ODALISMARLEENANDER :1970???Age:52 Y???Sex:Female Address:[address] [place] [address], [place], [address] * * Date:?
--- OUTSIDE RECORDS SUMMARY | 2024-07-28 16:45 | XMS_ITS ---
Author Organization [facility] Address [address] [place] [address] Care Team Providers Care Steel Finisher Name Role Phone Amber Contreras Unavailable [phone] Allergies No Known Allergies Results Component Value Reference Range Notes Urinalysis Reviewed date:09/16/2023 09:11:05 AM Interpretation: Performing Lab: Notes/Report: PH 5.0 PROTEIN Neg GLUCOSE Neg BLOOD Neg [id number] IGP No Culture 30 Plus Reviewed date:09/19/2023 04:19:35 PM Interpretation: Performing Lab:[facility] [place], [address], [address], [place], Phone - [phone], Director - [facility] Notes/Report: Clinical Information:Vaginal/Cervical, LMP: Men o [id number] Dates / Results....08/09/20 NIL, Neg HPV Other..............Post Menopausal No. of containers..01 ThinPrep Vial DIAGNOSIS: NEGATIVE FOR IN TRAEPITHELIAL LESION OR MALIGNANCY. Specimen adequacy: Satisfactory for evaluation. Endocervical and/or squamous metaplastic cells (endocervical component) are present. Clinician provided ICD10: Z0 1.419 Performed by: Sheri santa, Child Study Team Director (ASCP) . . Note: The Pap smear is a screening test designed to aid in the detection of premalignant and malignant conditions of the uterine cervix. It is not a diagnostic procedure and should not be used as the sole means of detecting cervical cancer. Both false-positive and false-negative reports do occur. . Test Methodology: This liquid based ThinPrep(R) pap test was screened with the use of an image guided system. HPV Aptima Negative Negative This nucleic acid amplification test detects fourteen high-risk HPV types (16,18,31,33,35,39,45,51,52,56,58 ,59,66,68) without differentiation. HPV Genotype Reflex Criteria not met, HPV Genotype not performed. PDF Report Reviewed date:09/19/2023 04:19:18 PM Interpretation: Performing Lab:[facility] [place], [address], [address], [place], Phone - [phone], Director - [facility] Notes/Report: Clinical Information:Vaginal/Cervical, LMP: Men o [id number] Dates / Results....08/09/20 NIL, Neg HPV Other..............Post Menopausal No. 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 Physical, Annual MODEL AND MOLD MAKER Physical 50-59* Medications Medication SIG (Take, Route, Frequency, Duration) Notes Start Date End Date Status Escitalopram Oxalate 10 MG 1 tablet Oral ly Once a day Active Propranolol HCl 60 MG 1 tablet on an emp ty stomach Orally Once a day Active Atorvastatin Calcium 80 MG 1 tablet Oral ly Once a day for 30 day(s) Active Multi-Vitamin - 1 tablet Orally Once a day for 30 day(s) Active Social History Tobacco Use: Social History Observation Description Date Details (start date - stop date) Current Smoker NA - NA Tobacco Use/Smoking Question Answer Notes Are you a current smoker How often do you smoke cigarettes? every day How many cigarettes a day do you smoke? 5 or les s Alcohol Screen (Audit-C) Question Answer Notes Did you have a drink contain ing alcohol in the past year? Yes How often did you have a dri nk containing alcohol in the past year? 2 to 3 times a week (3 points) How many drinks did you have on a typical day when you were drinking in the past year? 3 or 4 drinks (1 point) Points 4 Interpretation Positive Sexual History Question Answer Notes Had sex in the past 12 months (vaginal, oral, or anal)? Yes with Men only Prevention strategies discussed: Other Vital Signs Temperature 97.5 degrees Fahrenheit 09/16/19 24 Blood pressure systolic 114 mm Hg 09/16/19 24 Blood pressure diastolic 82 mm Hg 024 Height 64.75 in 09/16/2023 Weight 174 lbs 09/16/2023 BMI 29.18 kg/m2 09/16/2023 Encounters Encounter Location Date Provider Diagnosis [address] [address] 09/16/2023 Amber Contreras Encounter for gynecological examination (general) (routine) without abnormal findings Z01.419 ; Encounter for screening mammogram for malignant neoplasm of breast Z12.31 ; Family history of malignant neoplasm of breast Z80.3 ; Dense breasts, unspecified R92.30 and Personal history of other diseases of the female genital tract Z87.42 Assessments Encounter Date Diagnosis (ICD Code) Assessment Notes Treatment Notes Treatment Clinical Notes Section Notes 09/16/2023 Encounter for gynecological examination (general) (routine) without abnormal findings (ICD-10 - Z01.419) PAP TEST WITH HPV TYPING WAS OBTAINED. 09/16/2023 Encounter for screening mammogram for malignant neoplasm of breast (ICD-10 - Z12.31) REGULAR MAMMOGRAMS AND SBE'S WERE RECOMMENDED. 09/16/2023 Family history of malignant neoplasm of breast (ICD-10 - Z80.3) PAT'S MOTHER HAD BREAST CA. 09/16/2023 Dense breasts, unspecified (ICD-10 - R92.30) DISCUSSED DENSE BREASTS ON MAMMOGRAM AND ITS IMPLICATIONS. SCHEDULE SCREENING MAMMOGRAM THISOCTOBER 2023. SCHEDULE SCREENING BREAST MRI IN MAY 2023. 09/16/2023 Personal history of other diseases of the female genital tract (ICD-10 - Z87.42) DISCUSSED PREVIOUS HX OF ATYPICAL ENDOCERVICAL CELLS AND NEGATIVE WORK UP AND NORMAL SUBSEQUENT PAP TESTS. Plan Of Treatment Treatment Notes Assessment Notes Encounter for gynecological examination (general) (routine) without abnormal findings PAP TEST WITH HPV TYPING WAS OBTAINED. Encounter for screening mamm ogram for malignant neoplasm of breast REGULAR MAMMOGRAMS AND SBE'S WERE RECOMMENDED. Family history of malignant neoplasm of breast PAT'S MOTHER HAD BREAST CA. Dense breasts, unspecified DISCUSSED DENSE BREASTS ON MAMMOGRAM AND ITS IMPLICATIONS. SCHEDULE SCREENING MAMMOGRAM THISOCTOBER 2023. SCHEDULE SCREENING BREAST MRI IN MAY 2023. Personal history of other di seases of the female genital tract DISCUSSED PREVIOUS HX OF ATYPICAL ENDOCERVICAL CELLS AND NEGATIVE WORK UP AND NORMAL SUBSEQUENT PAP TESTS. Pending Test Test Name Order Date MM Digital Mammo Screening 09/16/2023 Next Appt Details Follow Up: 1 Year, Reason: Provider Name:Amber obando, 09/16/2024 08:20:00 AM, [address], [address], [place], [address], Progress Notes * PAULINA JACOBOOB:1970 (52 yo F)Acc No.[id number]:09/16/2023 PROGRESS NOTES Patient:?ANDER JACOBO Appointment Provider:?Amber obando M.D. :1970???Age:52 Y???Sex:Female D ate:09/16/2023 Address:[address] [place] [address], [id number] Subjective: * Chief Complaints: * ???Annual MODEL AND MOLD MAKER PhysicalAnnual MODEL AND MOLD MAKER Physical 50-59* * HPI: ???New/Follow-up Patient Consult:? PAT ENTERED MENOPAUSE IN 2017.? SHE HAS BEEN WITH THE SAME PARTNER FOR 16 YEARS AND OCCASIONALLY HAS DYSPAREUNIA.? THEY USE LUBRICANTS. HER PAP TEST IN 2017 SHOWED ATYPICAL ENDOCERVICAL CELLS.? WORK UP WAS NEGATIVE.? REPEAT PAP TESTS IN 2019 AND 2020 WERE NEGATIVE AND HPV NEGATIVE. HER LAST MAMMOGRAM DONE IN OCTOBER 2022 SHOWED DENSE BREASTS AND WAS NORMAL.? HER MOTHER HAD BREAST CA IN HER 60'S.? HER BREAST CA RISK IS 34.5%.? SHE HAD BREAST MRI IN 220 AND SCREENING BREAST ULTRASOUNDS IN 2021 AND 2023.? WE WLL GET ANOTHER MAMMOGRAM THIS OCTOBER 2023 AND SCHEDULE SCREENING BREAST MRI IN APR 2023 OR MAY 2023. SHE HAD COLOGUARD TESTING DONE IN 2021. MODERNA X 3. ???Annual:? Patient presents for annual exam, ages 50-59. ?General Health Maintenance:?Current breast complaints:?no breast pain, mass, discharge, or skin changes ?Urinary problems:?patient reports no urinary health problems or bowel health problems ?Calcium intake:?takes adequate calcium via diet and supplementation ?Significant MODEL AND MOLD MAKER problems:?no significant geological science teacher symptoms or problems * ROS:?general:?no?chest pain.?no?palpitations.?no?headache.?no?cough.?no?shortness of breath.?no?fever.?no?unexplained weight loss.?no?nausea/vomiting.?no?change in bowel movements.?no blood in stool.?no?genitourinary complaints.?no?skin complaints.? * Medical History:? 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 * OB History:?Total pregnancies?2.?Total living children?1.?NVD?1.?(s)?1.? * Surgical History:?Abortiom 2 001Angiogram 07/2016Lymph Node Biopsy Underarm, Due to Swelling Breast Biopsy Cyst Removal x 2 Left Elbow, Neck 1992 & 1999Varicose Veins Laser & Injections 06/2011 * Hospitalization/Major Diagno stic Procedure:?1 Vaginal Delivery * Family History:?Mother: dennise e, breast cancer.?Father: alive, DC, stent put in at age 71.? * Social History:?Tobacco Use:?Tobacco Use/Smoking?Are you a?current smoker ?How often do you smoke cigarettes??every day ?How many cigarettes a day do you smoke??5 or less ???Sexual History:?Sexual History?Had sex in the past 12 months (vaginal, oral, or anal)??Yes ?with?Men only ?Prevention strategies discussed:?Other ?Details of Sexual History?Are you sexually active??Yes ???Drugs/Alcohol:?Drugs?Have you used drugs other than those for medical reasons in the past 12 months??No ?Alcohol Screen (Audit-C)?Did you have a drink containing alcohol in the past year??Yes ?How often did you have a drink containing alcohol in the past year??2 to 3 times a week (3 points) ?How many drinks did you have on a typical day when you were drinking in the past year??3 or 4 drinks (1 point) ?Points?4 ?Interpretation?Positive ???Miscellaneous:?Children: yes, 1. ?Exercise: yes, treadmill, walking, soccer. ?Home smoke detector use: yes. ?Living with: spouse. ?Marital status: . ?Natural support system: yes. ?Occupation: [employer]. ?Sexually active: yes, monogamous relationship. * Medications:?TakingEscitalop javed Oxalate 10 MG Tablet 1 tablet Orally Once a day Propranolol HCl 60 MG Tablet 1 tablet on an empty stomach Orally Once a day Atorvastatin Calcium 80 MG Tablet 1 tablet Orally Once a day Multi-Vitamin - Tablet 1 tablet Orally Once a day Taking Escitalopram Oxalate 10 MG Tablet 1 tablet Orally Once a day Taking Propranolol HCl 60 MG Tablet 1 tablet on an empty stomach Orally Once a day Taking Atorvastatin Calcium 80 MG Tablet 1 tablet Orally Once a day Taking Multi-Vitamin - Tablet 1 tablet Orally Once a day DiscontinuedAspirin 81 MG Tablet Delayed Release 1 tablet Orally Once a day Premarin 0.625 MG/GM Cream 1 GRAM INTO VAGINA AND ALONG VULVA TWICE WEEKLY LORazepam 0.5 MG Tablet 1 tablet as needed Orally every 6 hrs busPIRone HCl 5 MG Tablet TAKE 1 TABLET BY MOUTH TWICE A DAY Oral Medication List reviewed and reconciled with the patientDiscontinued Aspirin 81 MG Tablet Delayed Release 1 tablet Orally Once a day Discontinued Premarin 0.625 MG/GM Cream 1 GRAM INTO VAGINA AND ALONG VULVA TWICE WEEKLY Discontinued LORazepam 0.5 MG Tablet 1 tablet as needed Orally every 6 hrs Discontinued busPIRone HCl 5 MG Tablet TAKE 1 TABLET BY MOUTH TWICE A DAY Oral Medication List reviewed and reconciled with the patient * Allergies:?N.K.D.A.no[Allerg ies Verified] Objective: * Vitals:?Ht: 64.75 in, Wt:174 lbs, BMI:29.18Index, BP:114/82mm Hg, Temp:97.5F. * Examination: ???General Exam: ?CONSTITUTIONAL:?General Appearance:?alert, in no acute distress, normal, well nourished ?NECK/THYROID:?Inspection/Palpation:?normal ?Thyroid:?normal size and shape ?RESPIRATORY:?Auscultation: clear to auscultation bilaterally, Respiratory Effort: normal.?CARDIOVASCULAR:?Auscultation: regular rate and rhythm.?BREAST, Right:?Inspection/Palpation:?no discharge, no masses present, no nipple retraction, no skin changes, no skin dimpling, no tenderness, no lymphadenopathy, no axillary mass, no axillary tenderness ?BREAST, Left:?Inspection/Palpation:?no discharge, no masses present, no nipple retraction, no skin changes, no skin dimpling, no tenderness, no lymphadenopathy, no axillary mass, no axillary tenderness ?GASTROINTESTINAL:?Abdomen:?no masses, nontender, nondistended ?Liver and Spleen:?normal ?Hernias:?no hernias present, no inguinal adenopathy ?MUSCULOSKELETAL:?Inspection/Palpation:?no clubbing, cyanosis, or edema ?SKIN:?Skin:?normal ?NEURO/PSYCH:?Orientation:?time , place, person ?Mood/Affect:?normal?Genitourinary: ?EXTERNAL GENITALIA:?External Genitalia:?normal, no lesions ?VAGINA:?Vagina:?normal appearance, no abnormal discharge, no lesions ?BLADDER:?Bladder:?no mass, nontender ?URETHRA:?Urethra:?no erythema or lesions present ?CERVIX:?Cervix:?no lesions, nontender ?UTERUS:?Uterus:?nontender, normal contour, normal mobility, normal size ?ADNEXA:?Adnexa:?no masses, no tenderness ?ANUS AND PERINEUM:?Anus/Perineum:?visually normal??? Assessment: * Assessment: 1.?Encounter for gynecologic al examination (general) (routine) without abnormal findings - Z01.419?2.?Encounter for screening mammogram for malignant neoplasm of breast - Z12.31?3.?Family history of malignant neoplasm of breast - Z80.3?4.?Dense breasts, unspecified - R92.30?5.?Personal history of other diseases of the female genital tract - Z87.42? Plan: * Treatment: ? Value Reference Range ?PH 5.0 * ?PROTEIN Neg * ?GLUCOSE Neg * ?BLOOD Neg Notes: PAP TEST WITH HPV TYPING WAS OBTAINED.??2.?Encounter for screening mammogram for malignant neoplasm of breast?Imaging: MM Digital Mammo Screening Notes: REGULAR MAMMOGRAMS AND SBE'S WERE RECOMMENDED.??3.?Family history of malignant neoplasm of breast? Notes: PAT'S MOTHER HAD BREAST CA.??4.?Dense breasts, unspecified? Notes: DISCUSSED DENSE BREASTS ON MAMMOGRAM AND ITS IMPLICATIONS. SCHEDULE SCREENING MAMMOGRAM THISOCTOBER 2023. SCHEDULE SCREENING BREAST MRI IN MAY 2023.??5.?Personal history of other diseases of the female genital tract? Notes: DISCUSSED PREVIOUS HX OF ATYPICAL ENDOCERVICAL CELLS AND NEGATIVE WORK UP AND NORMAL SUBSEQUENT PAP TESTS.?? * Procedure Codes:? * Preventive Medicine:? ??YOUR PREVENTIVE WELLNESS PLAN:?Osteoporosis prevention?Calcium, D, strength training.?Breast Cancer Screening (Mammogram):?annually.?Cervical Cancer Screening (Pap Smear):?q 3 years with HPV screen.?Colorectal Cancer Screening:?q 10 years.? * Follow Up:?1 Year * Images: Billing Information: * Visit Code:? 41538 Preventive Care New Pt. Age 40-64. 10464 Preventive Care Est Pt. Age 40-64. * Procedure Codes:? * Sign off status: Completed true * Appointment Provider:?Amber Contreras M.D. Date:?09/16/2023 Generated for Tati bolton/Tim/eTmicaelasmitting on:?07/28/2024 04:44 PM EDT History and Physical Notes * HPI (History of Present Illness) Category Sub-Category Detail Notes Category Not es New/Follow-up Patient Consult ANN ENTERED MENOPAUSE IN 2017. SHE HAS BEEN WITH THE SAME PARTNER FOR 16 YEARS AND OCCASIONALLY HAS DYSPAREUNIA. THEY USE LUBRICANTS. HER PAP TEST IN 2017 SHOWED ATYPICAL ENDOCERVICAL CELLS. WORK UP WAS NEGATIVE. REPEAT PAP TESTS IN 2019 AND 2020 WERE NEGATIVE AND HPV NEGATIVE. HER LAST MAMMOGRAM DONE IN OCTOBER 2022 SHOWED DENSE BREASTS AND WAS NORMAL. HER MOTHER HAD BREAST CA IN HER 60'S. HER BREAST CA RISK IS 34.5%. SHE HAD BREAST MRI IN 220 AND SCREENING BREAST ULTRASOUNDS IN 2021 AND 2023. WE WLL GET ANOTHER MAMMOGRAM THIS OCTOBER 2023 AND SCHEDULE SCREENING BREAST MRI IN APR 2023 OR MAY 2023. SHE HAD COLOGUARD TESTING DONE IN 2021. MODERNA X 3. Annual General Health Maintenance: Current breast complaints:: no breast pain, mass, discharge, or skin changes Urinary problems:: patient r eports no urinary health problems or bowel health problems Calcium intake:: takes adequ ate calcium via diet and supplementation Significant MODEL AND MOLD MAKER problems:: n o significant geological science teacher symptoms or problems Examination Category Sub-Category Detail Notes Category Not es General Exam CONSTITUTIONAL: General Appearan ce:: alert, in no acute distress, normal, well nourished NECK/THYROID: Thyroid:: normal size and shape Inspection/Palpation:: normal RESPIRATORY: Auscultation: clear to auscultation bilaterally, Respiratory Effort: normal CARDIOVASCULAR: Auscultation: regula r rate and rhythm GASTROINTESTINAL: Hernias:: no hernias present, no inguinal adenopathy Liver and Spleen:: normal Abdomen:: no masses, nontender, nondiste nded MUSCULOSKELETAL: Inspection/Palpation:: no clubb ing, cyanosis, or edema SKIN: Skin:: normal NEURO/PSYCH: Mood/Affect:: normal Orientation:: time , place, person BREAST, Right: Inspection/Palpation :: no discharge, no masses present, no nipple retraction, no skin changes, no skin dimpling, no tenderness, no lymphadenopathy, no axillary mass, no axillary tenderness BREAST, Left: Inspection/Palpation :: no discharge, no masses present, no nipple retraction, no skin changes, no skin dimpling, no tenderness, no lymphadenopathy, no axillary mass, no axillary tenderness Genitourinary EXTERNAL GENITALIA: External Genitalia:: nor mal, no lesions VAGINA: Vagina:: normal appearance, no a bnormal discharge, no lesions BLADDER: Bladder:: no mass, nontender URETHRA: Urethra:: no erythema or lesions present CERVIX: Cervix:: no lesions, nontender UTERUS: Uterus:: nontender, normal conto ur, normal mobility, normal size ADNEXA: Adnexa:: no masses, no tendernes s ANUS AND PERINEUM: Anus/Perineum:: visually norm al
== END 2024-07-28 14:40 | disposition home or self-care (01) ==
LOC: HO.HMCC 13:58
PROVIDERS: PCP Internal Medicine; Visit Provider Internal Medicine
DX: I25.10 Atherosclerotic heart disease of native coronary artery without angina pectoris (principal); F41.9 Anxiety disorder, unspecified

== ENCOUNTER → 2024-07-28 13:58 | Outpatient (BNVA) | payer OTHER, SELFPAY | PROVIDERS: PCP Internal Medicine; Visit Provider Internal Medicine | DX: I25.10 Atherosclerotic heart disease of native coronary artery without angina pectoris (principal); F41.9 Anxiety disorder, unspecified | CPT/HCPCS: 96127 ==

== ENCOUNTER 2024-07-31 15:24 | Emergency (ER) | payer OTHER, SELFPAY ==
--- NOTE | 2024-07-31 15:32 | ECG_ITS ---
Test Reason : CP Blood Pressure : */* mmHG Vent. Rate : 61 BPM Atrial Rate : 61 BPM P-R Int : 150 ms QRS Dur : 84 ms QT Int : 434 ms P-R-T Axes : 47 -25 12 degrees QTcB Int : 436 ms Normal sinus rhythm ST & T wave abnormality, consider anterior ischemia Abnormal ECG When compared with ECG of 20-Aug-2015 08:47, Premature atrial complexes are no longer Present QRS axis Shifted left T wave inversion now evident in Anterior leads Referred By: Generic ED Physician Electronically Signed By: Costa Galvan
[2024-07-31 15:48] VITALS: BP 134/85; PULSE 56; RESP 16; TEMP 36.7; O2SAT 96; BMI 28.1
--- NOTE | 2024-07-31 15:48 | ED.CHESTPAIN ---
HPI - Chest Pain General Chief Complaint: Chest Pain Stated Complaint: burning feeling in chest Time Seen by Provider: 07/31/24 18:18 Source: patient Mode of arrival: ambulatory Limitations: no limitations History of Present Illness ED Provider: Dr. Edelmira Mccabe HPI narrative: Patient comes to the emergency room complaining of chest burning sensation. Patient states that approximately 4 hours ago, patient was driving and had a sudden onset of burning sensation. Patient states it lasted for about 20 minutes and then self resolved. Patient states that when she arrived to emergency room she was asymptomatic. However, when she was getting her EKG done, she had the same sensation which lasted a few seconds. Patient states that last week she had a similar episode of chest burning sensation, states that she went to [facility]. Patient states that her troponin is mildly elevated, did check echocardiogram and a cardiac catheterization. According to the patient they did not find any blockages. Patient was diagnosed with vasospasms per patient. At this time, patient has no chest pain, chest pressure or shortness of breath. Related Data Home Medications ?Medication ?Instructions ?Recorded ?Confirmed escitalopram oxalate 5 mg tablet 15 mg PO DAILY 11/23/22 07/28/24 amlodipine 2.5 mg tablet 2.5 mg PO DAILY 07/28/24 07/28/24 lorazepam 0.5 mg tablet 0.5 mg PO BID PRN 07/28/24 07/28/24 Previous Rx's ?Medication ?Instructions ?Recorded aspirin 81 mg tablet,delayed 81 mg PO DAILY #30 tabs 07/14/20 release (Ecotrin Low Strength) atorvastatin 80 mg tablet 80 mg PO DAILY #90 tabs 08/05/23 propranolol 60 mg capsule,24 60 mg PO DAILY #90 caps 02/05/24 hr,extended release Allergies Allergy/AdvReac Type Severity Reaction Status Date / Time No Known Allergies Allergy Verified 07/31/24 15:52 [No Known Allergies*] Review of Systems Review of Systems: Constitutional : No Weight loss, No Fever, No Chills, No Night Sweats, No Fatigue, No Malaise ENT/Mouth : No Hearing loss, No Ear Pain, No Nasal Congestion, No Sinus Pain, No Hoarseness, No sore throat, No Rhinorrhea, No Swallowing Difficulty Eyes: No Eye Pain, No Swelling, No Redness, No Foreign Body, No Discharge, No Vision Changes Cardiovascular : Complaining of chest burning sensation, denies Chest Pain, No SOB, No Dyspnea on Exertion, No Orthopnea, No Edema, No Palpitations Respiratory : No Cough, No Sputum, No Wheezing, No Smoke Exposure, No Dyspnea Gastrointestinal : No Nausea, No Vomiting, No Diarrhea, No Constipation, No abdominal Pain, No Hematochezia, No Melena Genitourinary : no irregular bleeding, No Dysuria, No Urinary Frequency, No Hematuria, No Urinary Incontinence, No Urgency, No Flank Pain, No Urinary Flow Changes, No Hesitancy Musculoskeletal : No joint pain, No Myalgias, No Joint Swelling Skin : No Skin Lesions, No rash Neuro : No Weakness, No Numbness, No Paresthesias, No Loss of Consciousness, No Dizziness, No Headache Psych : No Anxiety/Panic, No Depression, No SI/HI/AH/VH, No Social Issues, Heme/Lymph: No Bruising, No Bleeding,No Lymphadenopathy Endocrine : No Polyuria, No Polydipsia, No Temperature Intolerance [facility] Past Medical History Medical History Cubital tunnel syndrome Neck pain NSVT (nonsustained ventricular tachycardia) Elevated LFTs Coronary artery disease Mammogram normal Normal Pap smear Annual physical exam Anxiety disorder Palpitations Family History Family History Father CAD (coronary artery disease) Myocardial infarction CVD (cardiovascular disease) Mother COPD (chronic obstructive pulmonary disease) Smoker Breast cancer Maternal Grandfather CAD (coronary artery disease) CVD (cardiovascular disease) Maternal Grandmother Breast cancer Paternal Grandfather COPD (chronic obstructive pulmonary disease) Paternal Aunt CVD (cardiovascular disease) Myocardial infarction Son No problems noted. Sister No problems noted. Sister No problems noted. Sister No problems noted. 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), exercise Housing: House Alcohol intake: current Alcohol intake frequency: a few times a week Alcohol type: wine Patient Tobacco Use Status: Former Tobacco user e-Cigarette/Vaping Use: Never Used Advance Directives: No Advance Directives Information Provided: Yes service: No Current occupational status: employed Cognitive needs: No Hearing needs: No Vision needs: Yes Physical Exam Vital Signs: Vital Signs: Last Vital Signs Temp 98.7 F 07/31/24 19:37 Pulse 60 07/31/24 19:37 Resp 16 07/31/24 19:37 BP 126/78 07/31/24 19:37 Pulse Ox 98 07/31/24 19:37 O2 Del Method Room Air 07/31/24 19:37 BMI result Body Mass Index 28.1 Const: Other: Appearance: Alert. Oriented X3. No acute distress. Eyes: Pupils equal, round and reactive to light. ENT: Pharynx normal. Neck: Normal inspection. Neck supple. No lymph nodes noted. No crepitus CVS: Normal heart rate and rhythm. Pulses normal. Normal S1 and S2 Respiratory: No respiratory distress. Breath sounds normal. No Wheezing. No rales Abdomen: Soft and nontender. No rigidity. No distention. Skin: Skin warm and dry. Normal skin color. Normal skin turgor. Extremities: No lower extremity edema. No Lacerations. No Rash Neuro: Oriented X 3. No motor deficit. No sensory deficit. Moving all extremities. No slurred speech. CN 2 through 12 grossly intact Psych: calm, cooperative, normal affect Course Course Course Narrative: This is a Rapid Medical Exam performed in triage by Olesya Henry PA-C. Full HPI, ROS and PE to be performed by primary ED provider. 53yo F w/PMHx NSVT, CAD, Coronary vasospasm s/p negative Cardiac cath at [facility] last week, presenting to the ED c/o chest burning while driving today, (similar sx to prior NSTEMI/Coronary spasm), which she was recently admitted for at [facility] last week w/troponin leak. Denies CP at present. denies SOB, dizziness, nausea PE: notoxic appearing, talking in complete sentences Plan: EKG, labs, CXR Medical Decision Making Medical Decision Making MDM Narrative: My interpretation of EKG: Normal sinus rhythm, heart rate 61, no ST segment depression or elevation, nonspecific T-wave inversion in lead 3, QTC 61 My interpretation of labs: No significant abnormality in patient's hematology and chemistry, normal troponin We will repeat 2nd troponin 3 hours from the 1st set of labs We obtain records from [facility]. Patient was admitted, started on a heparin drip, treated for NSTEMI. Echocardiogram showed preserved ejection fraction, ejection fraction see % with no definite regional wall motion abnormalities, D-dimer negative. Cardiac catheterization done showed mild LAD stenosis, unchanged from echocardiogram of 2017. After they are workup was done at [facility], patient was diagnosed with a coronary vascular spasm and was started on low-dose amlodipine Second set of troponin negative. Patient asymptomatic. Patient admits that sometimes she gets anxious. Differential Diagnosis Differential Diagnoses: The differential diagnosis associated with the presentation includes (NSTEMI, ACS, anxiety, GERD, costochondritis) Admission/Observation Consideration of admission/observation: Escalation of care including admission/observation considered (Given patient's recent past medical admission to [facility], admission was considered) Lab Data MDM Lab Attestation statement: I reviewed the patient's lab results. 07/31/24 18:07 07/31/24 18:07 Labs: Lab Results 07/31/24 07/31/24 Range/Units 18:07 20:53 WBC 11.3 H (4.8-10.8) X10*3/uL RBC 4.18 L (4.20-5.50) X10*6/uL Hgb 13.2 (12.0-16.0) g/dl Hct 38.2 (37.0-47.0) % MCV 91.4 (80.0-98.0) fL MCH 31.6 (27.0-33.0) pg MCHC 34.6 (31.0-35.0) g/dl RDW 12.5 (11.0-16.0) % Plt Count 272 (160-400) X10*3/uL MPV 8.9 L (9.4-12.3) fL Immature Gran % (Auto) 0.3 (0.0-0.4) % Neut % (Auto) 65.6 (45-73) % Lymph % (Auto) 23.3 (20-40) % Burke % (Auto) 7.4 (2-11) % Eos % (Auto) 3.0 (0-4) % Baso % (Auto) 0.4 (0-2) % Lymph # (Auto) 2.6 (1.2-4.9) X10*3/uL Burke # (Auto) 0.8 (0.1-1.2) X10*3/uL Eos # (Auto) 0.3 (0.0-0.4) X10*3/uL Baso # (Auto) 0.0 (0.0-0.2) X10*3/uL Abs Immat Gran (auto) 0.03 (0.00-0.03) X10*3/uL Absolute Neuts (auto) 7.4 (2.0-8.3) x10*3/uL Absolute Nucleated RBC 0.000 (0.0-0.012) X10*3/uL Nucleated RBC % (auto) 0.0 (0.0-0.2) /100WBC Sodium 142 (135-145) mmol/L Potassium 4.2 (3.3-5.1) mmol/L Chloride 110 H (96-108) mmol/L Carbon Dioxide 26 (22-29) mmol/L Anion Gap 10 L (12-20) BUN 18 H (9-16) mg/dL Creatinine 0.62 (0.5-1.4) mg/dL Estim Creat Clear Calc 106.2 Estimated GFR > 60 Random Glucose 110 (60-115) mg/dL Calcium 9.5 (8.4-10.2) mg/dL Magnesium 1.8 (1.6-2.6) mg/dL Total Bilirubin 0.8 (0.0-1.0) mg/dL Direct Bilirubin 0.3 (0.0-0.5) mg/dL AST 32 H (5-31) U/L ALT 48 H (0-31) U/L Alkaline Phosphatase 117 (39-117) U/L Troponin I High Sens 3.3 < 2.7 (<3.5-17.0) ng/L B-Natriuretic Peptide 23 (<100) pg/mL Total Protein 7.6 (6.5-8.0) g/dL Albumin 4.0 (3.5-5.0) g/dL Critical Care Time Critical Care Time Critical Care Time: Yes Total Critical Care Time: 45 Attestation: I have personally provided critical care time. Time includes review of lab data, radiology results, discussion with consultants, and monitoring for potential decompensation. Intervention performed as documented. Discharge Plan Discharge Clinical Impression: Atypical chest pain Patient Disposition: Home, Self-Care Instructions: Chest Pain (ED) Additional Instructions: Please follow-up with your primary care physician melviorrow. If you have any worsening or new symptoms, please return to the emergency room or call 911 Prescriptions: No Action atorvastatin 80 mg tablet 80 mg PO DAILY Qty: 90 3RF propranolol 60 mg capsule,extended release 24 hr 60 mg PO DAILY Qty: 90 3RF lorazepam 0.5 mg tablet 0.5 mg PO BID PRN aspirin [Ecotrin Low Strength] 81 mg tablet,delayed release (DR/EC) 81 mg PO DAILY Qty: 30 0RF escitalopram oxalate 5 mg tablet 15 mg PO DAILY amlodipine 2.5 mg tablet 2.5 mg PO DAILY Referrals: Justyn Durán MD [Physician] - 08/03/24 Print Language: Ukrainian
[2024-07-31 18:10] LABS: MANUAL DIFF FLAG NO
[2024-07-31 18:14] LABS: Basophils Percent Auto 0.4 % (0-2); Eosinophils Absolute Auto 0.3 X10*3/uL (0.0-0.4); Hematocrit 38.2 % (37.0-47.0); Hemoglobin 13.2 g/dl (12.0-16.0); Imm Gran Abs Auto 0.03 X10*3/uL (0.00-0.03); Imm Gran Pct Auto 0.3 % (0.0-0.4); Lymphocytes Absolute Auto 2.6 X10*3/uL (1.2-4.9); Lymphocytes Percent Auto 23.3 % (20-40); Mean Corpuscular HGB Conc 34.6 g/dl (31.0-35.0); Mean Corpuscular Hemoglobin 31.6 pg (27.0-33.0); Mean Corpuscular Volume 91.4 fL (80.0-98.0); Mean Platelet Volume 8.9 fL (9.4-12.3); Monocytes Absolute Auto 0.8 X10*3/uL (0.1-1.2); Monocytes Percent Auto 7.4 % (2-11); Neutrophils Absolute Auto 7.4 x10*3/uL (2.0-8.3); Neutrophils Percent Auto 65.6 % (45-73); Platelet Count 272 X10*3/uL (160-400); Red Blood Count 4.18 X10*6/uL (4.20-5.50); Red Cell Distribution Width 12.5 % (11.0-16.0); White Blood Count 11.3 X10*3/uL (4.8-10.8)
[2024-07-31 18:30] LABS: Alanine Aminotransferase 48 U/L (0-31); Alkaline Phosphatase 117 U/L (39-117); Anion Gap 10 (12-20); Aspartate Amino Transferase 32 U/L (5-31); Bilirubin Direct 0.3 mg/dL (0.0-0.5); Bilirubin Total 0.8 mg/dL (0.0-1.0); Blood Urea Nitrogen 18 mg/dL (9-16); Calcium 9.5 mg/dL (8.4-10.2); Carbon Dioxide 26 mmol/L (22-29); Chloride 110 mmol/L (96-108); Creatinine Clr Calc Pharmacy 106.2; Estimated Glomerular Filt Rate > 60; Glucose Random 110 mg/dL (60-115); Magnesium 1.8 mg/dL (1.6-2.6); Potassium 4.2 mmol/L (3.3-5.1); Sodium 142 mmol/L (135-145); Total Protein 7.6 g/dL (6.5-8.0)
[2024-07-31 18:34] LABS: B Type Natriuretic Peptide 23 pg/mL (<100)
[2024-07-31 18:37] LABS: Troponin-I High Sensitivity 3.3 ng/L (<3.5-17.0)
[2024-07-31 18:54] VITALS: BP 135/78; PULSE 57; RESP 15; TEMP 36.6; O2SAT 98
[2024-07-31 19:37] VITALS: BP 126/78; PULSE 60; RESP 16; TEMP 37.1; O2SAT 98
--- NOTE | 2024-07-31 19:39 | MHC.EDTECH ---
This pct assumed care of Patient at 1900 ,vitals taken ,Patient awake ,no apparent distress noted , at bedside .
[2024-07-31 21:17] LABS: Troponin-I High Sensitivity < 2.7 ng/L (<3.5-17.0)
[2024-07-31 21:49] VITALS: BP 135/86; PULSE 55; RESP 16; TEMP 36.8; O2SAT 98
[2024-07-31 22:00] VITALS: BP 130/82; PULSE 61; PULSE 62; RESP 18; TEMP 36.7; O2SAT 97
== END 2024-07-31 22:01 | disposition home or self-care (01) ==
PROVIDERS: Physician Assistant; Emergency Provider Emergency Medicine; PCP Internal Medicine
DX: R07.89 Other chest pain (principal); I20.1 Angina pectoris with documented spasm; R06.02 Shortness of breath; R79.89 Other specified abnormal findings of blood chemistry; Z79.899 Other long term (current) drug therapy; Z87.891 Personal history of nicotine dependence
CPT/HCPCS: 36415; 80048; 80076; 83735; 83880; 84484; 85025; 93005; 99283; 99285

== ENCOUNTER → 2024-07-31 15:32 | Outpatient (BNV) | payer OTHER, SELFPAY | PROVIDERS: PCP Internal Medicine; Visit Provider Internal Medicine Cardiovascular Disease | DX: R07.9 Chest pain, unspecified (principal); R94.31 Abnormal electrocardiogram [ECG] [EKG] | CPT/HCPCS: 93010 ==

== ENCOUNTER 2024-08-03 12:32 | Outpatient (AMB) | payer OTHER, SELFPAY ==
--- NOTE | 2024-08-03 12:42 | A.OFFVIS_ITS ---
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 Recently she was at [facility] on July 23 with sudden-onset burning chest discomfort that came on while she was driving. She got concerned. She then call paramedics and was brought to [facility] Emergency room. Her initial troponin was slightly elevated in the 130 range. EKG shows anterior T-wave inversion she underwent a cardiac catheterization as well as an echocardiogram. Echocardiogram did not show any wall motion abnormality preserved LV ejection fraction. Cardiac catheterization showed nonobstructive proximal LAD disease which is unchanged from before. Patient then was discharged home and subsequently came to [facility] with similar sensation. EKG again showed anterior T-wave changes. She had troponins this time which were negative and she was then released home. She was given 5 mg of amlodipine in [facility] and a blood pressure is on the lower side in the 90s. She had no symptoms of lightheadedness. Overall blood pressure remains well controlled. She was very concerned about the symptoms. She has been taking all her medications regularly. She was also trying now to quit smoking and is currently using nicotine gum [facility] Medical History Cubital tunnel syndrome Neck pain NSVT (nonsustained ventricular tachycardia) Elevated LFTs Coronary artery disease Mammogram normal Normal Pap smear Annual physical exam Anxiety disorder Palpitations Family History Father CAD (coronary artery disease) Myocardial infarction CVD (cardiovascular disease) Mother COPD (chronic obstructive pulmonary disease) Smoker Breast cancer Maternal Grandfather CAD (coronary artery disease) CVD (cardiovascular disease) Maternal Grandmother Breast cancer Paternal Grandfather COPD (chronic obstructive pulmonary disease) Paternal Aunt CVD (cardiovascular disease) Myocardial infarction Son No problems noted. Sister No problems noted. Sister No problems noted. Sister No problems noted. 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 Housing: House Alcohol intake: current Alcohol intake frequency: a few times a week Alcohol type: wine Patient Tobacco Use Status: Former Tobacco user e-Cigarette/Vaping Use: Never Used service: No Current occupational status: employed Cognitive needs: No Hearing needs: No Vision needs: Yes Review of Systems Const Denies chills, Denies fatigue, Denies fever(s), Denies frequent falls, Denies weakness, Denies weight gain and Denies weight loss ENT Denies dizziness Card Denies chest pain, Denies leg edema, Denies lightheadedness, Denies palpitations, Denies dyspnea, Denies dyspnea on exertion, Denies orthopnea and Denies other (loss of consciousness) Resp Denies cough, Denies dyspnea and Denies dyspnea on exertion GI Denies hematochezia and Denies change in stool character Musc Denies abnormal gait, Denies muscle weakness, Denies numbness, Denies radiating pain into limb and Denies tingling Neuro Denies abnormal gait, Denies dizziness, Denies frequent falls, Denies numbness, Denies tingling and Denies weakness Endo Denies fatigue and Denies palpitations Physical Exam Vital Signs: Last Vital Signs Pulse 60 08/03/24 12:43 BP 100/66 08/03/24 12:43 BMI result Body Mass Index 28.2 Const General: cooperative, comfortable, no acute distress, alert and awake Nutritional Appearance: average body habitus Orientation/consciousness: patient oriented x3 Limitations: no limitations Neck Neck: Yes trachea midline, Yes supple and Yes no JVD Resp Effort & Inspection: normal respiratory effort Auscultation: clear to auscultation bilaterally Cardio Jugular venous distension: no JVD Palpation: normal PMI Rate: regular rate Rhythm: regular rhythm Heart sounds: S1 normal heart sound present and S2 normal heart sound present GI Auscultation: normal bowel sounds Skin General skin exam: no rashes or lesions noted Neuro General: patient oriented x3 and no focal motor deficits Extrem General: Yes no clubbing, cyanosis or edema Psych Appearance: grossly normal Office Procedures EKG Details: EKG shows normal sinus rhythm with T-wave changes in the anterior leads, unchanged from recent EKGs [id number], Complete Assessment & Plan Assessment & Plan (1) Coronary artery disease: Comment: nonobstructive stenosis LAD cardiac catheterization 2016, managed medically, repeat cath no change, Echo nl 07/23/2024 [facility] for + troponin , started on Amlodipine 07/23/24 Code(s): I25.10 - Atherosclerotic heart disease of blackfeet coronary artery without angina pectoris Category: Medical Plan: Coronary artery disease with mild disease on repeat cardiac catheterization recently when she presented with the acute onset chest pain with abnormal troponins with EKG changes. She had similar EKG on presentation following to [facility]. She was currently symptom-free. Obviously these symptoms are not related to obstructive coronary artery disease as well as stress-induced cardiomyopathy by echocardiogram. Possibilities include coronary vaso spasm and/or ischemia with nonobstructive coronary artery disease. Her EKGs definitely abnormal. Will repeat EKG today. Meanwhile have advised her to increase amlodipine to 5 mg daily and take it at nighttime. Advised to monitor blood pressure at home and increase her water intake. If blood pressure is low and/or she gets symptoms may have to go back down to 2.5 mg of amlodipine. Continue high-intensity statin therapy. Continue low-dose aspirin therapy. Target goal LDL less than 55 mg/dL. Complete smoking cessation was advised and she is interested. Have taken the liberty to prescribe a nicotine patches and use of the same. Will obtain event monitor to assess for any arrhythmias during these symptoms. (2) NSVT (nonsustained ventricular tachycardia): Code(s): I47.2 - Ventricular tachycardia Category: Medical Plan: Nonsustained ventricular tachycardia in the past with nonobstructive CAD as well as normal LV ejection fraction. Unlikely these symptoms of chest discomfort. To be cardiac arrhythmia put with will obtain a cardiac event monitor to further assess for the same. Will follow up in the clinic in 3 months time, sooner p.r.n.. Thank you for allowing me to partake in her care Orders: Orders Lipid Panel Today I25.10 - Atherosclerotic heart disease of blackfeet coronary artery without angina pectoris ECG 30 day event monitor Today I25.10 - Atherosclerotic heart disease of blackfeet coronary artery without angina pectoris Medications: New amlodipine 5 mg PO QPM 30 tabs 5RF nicotine 1 patch transdermal DAILY 28 ea 0RF nicotine Start after 4 weeks of 14 mg patch has completed 1 patch transdermal Q24H 28 ea 0RF Coding Level of Care Code Est Pt Level 4 (90229) Complex EM visit Add On G2211 Diagnoses Coronary artery disease I25.10 NSVT (nonsustained ventricular tachycardia) I47.2 CPT Codes EKG - CPT: [id number], Complete ([id number])
[2024-08-03 12:43] VITALS: BP 100/66; PULSE 60; BMI 28.2
== END 2024-08-03 13:34 | disposition home or self-care (01) ==
PROVIDERS: PCP Internal Medicine; Visit Provider Internal Medicine Cardiovascular Disease
DX: I25.10 Atherosclerotic heart disease of native coronary artery without angina pectoris (principal); I47.20 Ventricular tachycardia, unspecified
CPT/HCPCS: 93010; 99214

== ENCOUNTER → 2024-08-03 12:32 | Outpatient (BNVA) | payer OTHER, SELFPAY | PROVIDERS: PCP Internal Medicine; Visit Provider Internal Medicine Cardiovascular Disease | DX: I25.10 Atherosclerotic heart disease of native coronary artery without angina pectoris (principal); I47.20 Ventricular tachycardia, unspecified | CPT/HCPCS: 93005 ==

== ENCOUNTER → 2024-08-14 13:56 | Outpatient (REF) | payer OTHER, SELFPAY ==
--- NOTE | 2024-08-14 13:59 | HM_ITS ---
Cardiac event monitor Indication: Palpitations Technique: Patient was hooked up to cardiac event monitor from 08/14/2024 to 09/13/2024 with a total wear time of 29.3 days. I was requested to read this study on 09/23/2024. Findings: Baseline was normal sinus rhythm 99.67% of the time. Average heart rate about 61 beats per minute with minimal heart rate of 50 beats per minute and maximum heart rate of 136 beats per minute in supraventricular tachycardia. There were no significant pauses noted. Frequent sinus bradycardia noted with 52% of time heart rate below 60 beats per minute. Rare PACs noted. Occasional PVCs noted. One episode of SVT noted 136 beats per minute lasting about 25 beats. Patient triggered recordings 18 times with 7 corresponding symptoms but no symptoms reported except for 1 time when she reported chest pain which correlated to sinus tachycardia. One of the other symptoms correlated with isolated PACs. No symptoms were reported at the time of SVT. Conclusion: 1. Baseline was normal sinus rhythm with frequent sinus bradycardia without significant pauses 2. Rare PACs and occasional PVCs noted 3. One episode of SVT noted 136 beats per minute 4. Most of the patient reported symptoms correlated with sinus rhythm or sinus tachycardia MTDD
--- OUTSIDE RECORDS SUMMARY | 2024-08-14 15:42 | XMS_ITS ---
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 Role Phone Amber Contreras [phone] REASON FOR VISIT MRI May 2024 Encounters Encounter Location Date Provider Diagnosis [facility] [address] [place] [address] [address] [place] [address] 09/16/2023 Amber Contreras Plan Of Treatment Next Appt Details Provider Name:Ambre obando, 09/16/2024 08:20:00 AM, [address], [address], [place], [address], Progress Notes * PAULINA JACOBOOB:1970 (53 yo F)Acc No.[id number]:09/16/2023 Patient:?ODALISMARLEENANDER :1970???Age:52 Y???Sex:Female Address:[address] [place] [address], [place], [address] * * Date:?
--- OUTSIDE RECORDS SUMMARY | 2024-08-14 15:42 | XMS_ITS | Patient Health Record ---
Author Organization [facility] Address [address] [place] [address] Care Team Providers Care Mainspring Former Brace End Name Role Phone Amber Contreras Unavailable [phone] Allergies No Known Allergies Results Component Value Reference Range Notes PDF Report Reviewed date:09/19/2023 04:19:18 PM Interpretation: Performing Lab:[facility], Sergio Lopez, [address], [place], Phone - [phone], Director - [facility] Notes/Report: Clinical Information:Vaginal/Cervical, LMP: Men o [id number] Dates / Results....08/09/20 NIL, Neg HPV Other..............Post Menopausal No. of containers..01 ThinPrep Vial [id number] IGP No Culture 30 Plus Reviewed date:09/19/2023 04:19:35 PM Interpretation: Performing Lab:[facility], Sergio Lopez, [address], [place], Phone - [phone], Director - [facility] Notes/Report: Clinical Information:Vaginal/Cervical, LMP: Men o [id number] Dates / Results....08/09/20 NIL, Neg HPV Other..............Post Menopausal No. of containers..01 ThinPrep Vial DIAGNOSIS: NEGATIVE FOR IN TRAEPITHELIAL LESION OR MALIGNANCY. Specimen adequacy: Satisfactory for evaluation. Endocervical and/or squamous metaplastic cells (endocervical component) are present. Clinician provided ICD10: Z0 1.419 Performed by: Sheri santa, Software Quality Engineer (ASCP) . . Note: The Pap smear [...] Criteria not met, HPV Genotype not performed. Urinalysis Reviewed date:09/16/2023 09:11:05 AM Interpretation: Performing Lab: Notes/Report: PH 5.0 PROTEIN Neg GLUCOSE Neg BLOOD Neg Reason For Referral No Information Medications Medication SIG (Take, Route, Frequency, Duration) [...] with Men only Prevention strategies discussed: Other Problems Problem Type SNOMED Code ICD Code Onset Dates Problem Status W/U Status Risk Notes Problem Menopause (201667116) Menopausal and female climacteric states (N95.1) Active confirmed Problem Postmenopausal atrophic vaginitis (76121037) Postmenopausal atrophic vaginitis (N95.2) Active confirmed Problem Menopause (832457726) Menopausal and female climacteric states (N95.1) Active confirmed Vital Signs Temperature 97.5 degrees Fahrenheit 09/16/2023 Blood pressure diastolic 82 mm Hg 09/16/2023 Height 64.75 in 09/16/2023 Blood pressure systolic 114 mm Hg 09/16/2023 Weight 174 lbs 09/16/2023 BMI 29.18 kg/m2 09/16/2023 Encounters Encounter Location Date Provider Diagnosis [place] [address] [place] [employer] [address] [address] 09/16/2023 Amber Contreras Encounter for gynecological examination (general) (routine) without abnormal findings Z01.419 ; Encounter for screening mammogram for malignant neoplasm of breast Z12.31 ; Family history of malignant neoplasm of breast Z80.3 ; Dense breasts, unspecified R92.30 and Personal history of other diseases of the female genital tract Z87.42 [place] [address] [place] [employer] [address] [address] 09/16/2023 Amber Contreras Assessments Encounter Date Diagnosis (ICD Code) Assessment [...] NORMAL SUBSEQUENT PAP TESTS. Plan Of Treatment Pending Test Test Name Order Date DIAGNOSTIC MAMMOGRAM, LEFT BREAST 2022 [facility] Digital Mammo Screening 09/07/2022 [facility] Digital Mammo Screening 04/22/2018 [facility] Digital Mammo Screening 08/09/2020 MM Digital Mammo Screening 09/06/2021 MM Digital Mammo Screening 09/16/2023 Screening Bilateral Breast Ultrasound Screening Bilateral Breast Ultrasound Left Breast Ultrasound 09/07/2022 Next Appt Details Provider Name:Amber obando, 09/16/2024 08:20:00 AM, [address], [address], [place], [address], Insurance Providers Payer Name Payer Address Payer Phone Subscriber Number Group Number Insured Name Patient Relationship to Insured Coverage Start Date Coverage End Date [facility] [address] [place] [address] [id number] ANDER JACOBO Self - patient is the insured Medical (General) History Medical History History ICD Code Emotional/mental problems Hyperlipidemia, unspecified E78.5 Menopausal and female climacteric states N95.1 Inconclusive mammogram R92.2 Postmenopausal atrophic vaginitis N95.2 Personal history of other diseases of th e female genital tract Z87.42 Family history of malignant neoplasm of breast Z80.3 Mammographic heterogeneous density, bila teral breasts R92.333 Surgical History Surgery Date(Month/Year) Abortiom 2000 Angiogram 07/2016 Lymph Node Biopsy Underarm, Due to Swell ing Breast Biopsy Cyst Removal x 2 Left Elbow, Neck 1992 & 1999 Varicose Veins Laser & Injections 06/2011 Hospitalization History Reason Date(Month/Year) 1 Vaginal Delivery
--- OUTSIDE RECORDS SUMMARY | 2024-08-14 15:42 | XMS_ITS ---
Author Organization [employer] [facility] Address [address] [place] [address] Care Team Providers Care Business Analytics Faculty Member Name Role Phone Amber Contreras Unavailable [phone] Allergies No Known Allergies Results Component Value Reference Range Notes Urinalysis Reviewed date:09/16/2023 09:11:05 AM Interpretation: Performing Lab: Notes/Report: PH 5.0 PROTEIN Neg GLUCOSE Neg BLOOD Neg [id number] IGP No Culture 30 Plus Reviewed date:09/19/2023 04:19:35 PM Interpretation: Performing Lab:[facility], Sergio Ivis Loepz, [address], [place], Phone - [phone], Director - [facility] Notes/Report: Clinical Information:Vaginal/Cervical, LMP: Men o [id number] Dates / Results....08/09/20 NIL, Neg HPV Other..............Post Menopausal No. of containers..01 ThinPrep Vial DIAGNOSIS: NEGATIVE FOR IN TRAEPITHELIAL LESION OR MALIGNANCY. Specimen adequacy: Satisfactory for evaluation. Endocervical and/or squamous metaplastic cells (endocervical component) are present. Clinician provided ICD10: Z0 1.419 Performed by: Sheri santa, Communications Officer (ASCP) . . Note: The Pap smear [...] Ivis Lopez, [address], [place], Phone - [phone], Director - [facility] Notes/Report: Clinical Information:Vaginal/Cervical, LMP: Men o [id number] Dates / Results....08/09/20 NIL, Neg HPV Other..............Post Menopausal No. of containers..01 ThinPrep Vial REASON FOR VISIT Annual DRAPERY SUPERVISOR Physical, Annual DRAPERY SUPERVISOR Physical 50-59* Medications Medication SIG (Take, Route, [...] 09/16/2023 Encounters Encounter Location Date Provider Diagnosis [address] [address] 09/16/2023 Amber Contreras Encounter for gynecological examination [...] Provider Name:Amber obando, 09/16/2024 08:20:00 AM, [address], [address], [place], [address], Progress Notes * PAULINA JACOBOOB:1970 (52 yo F)Acc No.[id number]:09/16/2023 PROGRESS NOTES Patient:?ANDER JACOBO Appointment Provider:?Amber obando M.D. :1970???Age:52 Y???Sex:Female D ate:09/16/2023 Address:[address] [place] [address], [facility] Subjective: * Chief Complaints: * ???Annual DRAPERY SUPERVISOR PhysicalAnnual DRAPERY SUPERVISOR Physical 50-59* * HPI: ???New/Follow-up Patient Consult:? [...] adequate calcium via diet and supplementation ?Significant DRAPERY SUPERVISOR problems:?no significant scan coordinator symptoms or problems * ROS:?general:?no?chest pain.?no?palpitations.?no?headache.?no?cough.?no?shortness of breath.?no?fever.?no?unexplained weight loss.?no?nausea/vomiting.?no?change in bowel movements.?no blood in stool.?no?genitourinary complaints.?no?skin complaints.? * Medical History:? 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 * OB History:?Total pregnancies?2.?Total living children?1.?NVD?1.?(s)?1.? * Surgical History:?Abortiom 2 001Angiogram 07/2016Lymph Node Biopsy Underarm, Due to Swelling Breast Biopsy Cyst Removal x 2 Left Elbow, Neck 1992 & 1999Varicose Veins Laser & Injections 06/2011 * Hospitalization/Major Diagno stic Procedure:?1 Vaginal Delivery * Family History:?Mother: dennise e, breast cancer.?Father: alive, [place], stent put in at age 71.? * [...] status: . ?Natural support system: yes. 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 ?Sexually active: yes, monogamous relationship. * Medications:?TakingEscitalop [...] * Images: Billing Information: * Visit Code:? 74093 Preventive Care New Pt. Age 40-64. 00393 Preventive Care Est Pt. Age 40-64. * Procedure Codes:? * Sign off status: Completed true * Appointment Provider:?Amber Contreras M.D. Date:?09/16/2023 Generated for Tati bolton/Tim/eTmicaelasmitting on:?08/14/2024 03:42 PM EDT History and Physical Notes * [...] ate calcium via diet and supplementation Significant DRAPERY SUPERVISOR problems:: n o significant scan coordinator symptoms or problems Examination Category Sub-Category Detail [...]
== END ==
LOC: HO.CARD 13:56
PROVIDERS: PCP Internal Medicine; Visit Provider Internal Medicine Cardiovascular Disease
DX: I25.10 Atherosclerotic heart disease of native coronary artery without angina pectoris (principal); R00.1 Bradycardia, unspecified; I49.3 Ventricular premature depolarization
CPT/HCPCS: 93270

== ENCOUNTER → 2024-08-14 13:59 | Outpatient (BNV) | payer OTHER, SELFPAY | PROVIDERS: PCP Internal Medicine; Visit Provider Internal Medicine Cardiovascular Disease | DX: I49.1 Atrial premature depolarization (principal); I49.3 Ventricular premature depolarization; I47.10 Supraventricular tachycardia, unspecified | CPT/HCPCS: 93272 ==

== ENCOUNTER 2024-09-11 16:40 | Emergency (ER) | payer OTHER, SELFPAY ==
--- NOTE | ~2024-09-11 | XR_ITS ---
CLINICAL HISTORY: chest pain 2 view chest x-ray Comparison: None Findings: The lungs are clear. Heart size is normal. No acute fracture. IMPRESSION: 1. No acute findings. This document has been electronically signed by: Nora Owen MD on 09/11/2024 17:32:04
--- NOTE | 2024-09-11 16:44 | ECG_ITS ---
Test Reason : CHEST PAIN Blood Pressure : */* mmHG Vent. Rate : 60 BPM Atrial Rate : 60 BPM P-R Int : 144 ms QRS Dur : 82 ms QT Int : 432 ms P-R-T Axes : 50 -18 2 degrees QTcB Int : 432 ms Normal sinus rhythm Low voltage QRS ST & T wave abnormality, consider anterolateral ischemia Abnormal ECG When compared with ECG of 31-Jul-2024 15:36, No significant change was found Referred By: Christina Browne Electronically Signed By: Costa Galvan
[2024-09-11 17:01] VITALS: BP 124/75; PULSE 66; RESP 18; TEMP 37.1; O2SAT 97; BMI 29.0
--- NOTE | 2024-09-11 17:01 | ED_ITS ---
HPI - Chest Pain General Chief Complaint: Chest Pain Stated Complaint: CP Time Seen by Provider: 09/11/24 21:19 History of Present Illness HPI narrative: Patient with frequent chest pain cardiac catheterization done in 2016 and 08/04 showed nonobstructive proximal LAD disease which is unchanged from 2017 patient comes here for similar mild left-sided chest discomfort lasted only for few minutes EMS checked the blood pressure was in 180 range patient took Ativan and aspirin at that time and felt better , no ischemic changes in the EKG and troponin normal range patient is chest pain-free at this time no cardiac arrhythmia noted during stay in the ER patient is wearing the event monitor and she pressed the button at the time of the symptoms Related Data Home Medications ?Medication ?Instructions ?Recorded ?Confirmed escitalopram oxalate 5 mg tablet 15 mg PO DAILY 11/23/22 08/03/24 lorazepam 0.5 mg tablet 0.5 mg PO BID PRN 07/28/24 08/03/24 Previous Rx's ?Medication ?Instructions ?Recorded aspirin 81 mg tablet,delayed 81 mg PO DAILY #30 tabs 07/14/20 release (Ecotrin Low Strength) propranolol 60 mg capsule,24 60 mg PO DAILY #90 caps 02/05/24 hr,extended release amlodipine 5 mg tablet 5 mg PO QPM #30 tabs 08/03/24 nicotine 14 mg/24 hr daily 1 patch transdermal DAILY #28 ea 08/03/24 transdermal patch nicotine 7 mg/24 hr daily 1 patch transdermal Q24H #28 ea 08/03/24 transdermal patch atorvastatin 80 mg tablet 80 mg PO DAILY #90 tabs 08/07/24 Allergies Allergy/AdvReac Type Severity Reaction Status Date / Time No Known Allergies Allergy Verified 09/11/24 17:04 [No Known Allergies*] Review of Systems 2 Review of Systems: Yes all other systems are reviewed and are negative [facility] Past Medical History Medical History Cubital tunnel syndrome Neck pain NSVT (nonsustained ventricular tachycardia) Elevated LFTs Coronary artery disease Mammogram normal Normal Pap smear Annual physical exam Anxiety disorder Palpitations Family History Family History Father CAD (coronary artery disease) Myocardial infarction CVD (cardiovascular disease) Mother COPD (chronic obstructive pulmonary disease) Smoker Breast cancer Maternal Grandfather CAD (coronary artery disease) CVD (cardiovascular disease) Maternal Grandmother Breast cancer Paternal Grandfather COPD (chronic obstructive pulmonary disease) Paternal Aunt CVD (cardiovascular disease) Myocardial infarction Son No problems noted. Sister No problems noted. Sister No problems noted. Sister No problems noted. 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), 1 stepdaughter (17), exercise Housing: House Alcohol intake: current Alcohol intake frequency: holidays/special occasions only Alcohol type: wine Patient Tobacco Use Status: Former Tobacco user Smoked in Last 30 Days: No e-Cigarette/Vaping Use: Never Used Use of substances other than those prescribed or required for medical reasons: No Advance Directives: No Advance Directives Information Provided: Yes Do you have a plan to hurt others: No Plan Patient : No service: No Current occupational status: employed Cognitive needs: No Hearing needs: No Vision needs: Yes Physical Exam 2 Vital Signs: Vital Signs: Last Vital Signs Temp 98.8 F 09/11/24 17:01 Pulse 61 09/11/24 19:24 Resp 17 09/11/24 19:24 BP 126/76 09/11/24 19:24 Pulse Ox 96 09/11/24 19:24 O2 Del Method Room Air 09/11/24 19:24 BMI result Body Mass Index 29.0 Appearance: Alert. Oriented X3. No acute distress. Eyes: No pallor or icterus ENT: Pharynx normal. Oral Mucosa moist Neck: Normal inspection. Neck supple. CVS: Normal heart rate and rhythm. Pulses normal. Respiratory: No respiratory distress. Equal air entry bilateral, no wheezing/rales/rhonchi Abdomen: Soft and nontender. Bowel sounds are present, no mass palpable, no CVA tenderness Skin: Skin warm and dry. Normal skin color. Normal skin turgor. Extremities: No lower extremity edema. No calf tenderness Neuro: Oriented X 3. No motor deficit. Course Course Course Narrative: This is an RME performed by Marcelle Browne CNP: Additional HPI, ROS, PE not included below will be deferred to primary provider. Patient is a 53-year-old female who presents to the emergency department for evaluation. She reports that approximately 6 weeks ago she was admitted to [facility] with chest pain and elevated troponin, had a normal echocardiogram and cardiac catheterization, was ultimately discharged home on new medications who was advised it was likely an arterial spasm. She is currently wearing a 30 day Holter monitor. She reports about 4.5 weeks ago she had a similar episode of pain at which she came to emergency department had a normal troponin at that time. Today while at work 14: 30 she experienced left anterior chest pain that was mild lasting a few minutes she was sitting down at rest at work, had an overwhelming feeling and like she could not breathe. For medics came to the office, performed an EKG which appeared unchanged from a prior copy that she had on her person and was advised to come to the emergency department for further evaluation. She ultimately drove home and decided to come to the emergency department. Plan: EKG, serum labs, CXR Medical Decision Making Medical Decision Making [facility] Narrative: Patient has atypical chest pain with history of anxiety previous cardiac catheterization x2 were without any obstructive coronary artery disease , initial EKG and cardiac enzymes are negative likely patient has anxiety attack/atypical chest pain patient advised to follow with quality improvement engineer Differential Diagnosis Differential Diagnoses: The differential diagnosis associated with the presentation includes ACS/cardiac arrhythmias/hypertension/anxiety Lab Data [facility] Lab Attestation statement: I reviewed the patient's lab results. 09/11/24 17:25 09/11/24 17:25 Labs: Lab Results 09/11/24 Range/Units 17:25 WBC 10.5 (4.8-10.8) X10*3/uL RBC 4.05 L (4.20-5.50) X10*6/uL Hgb 12.9 (12.0-16.0) g/dl Hct 37.1 (37.0-47.0) % MCV 91.6 (80.0-98.0) fL MCH 31.9 (27.0-33.0) pg MCHC 34.8 (31.0-35.0) g/dl RDW 12.3 (11.0-16.0) % Plt Count 256 (160-400) X10*3/uL MPV 8.5 L (9.4-12.3) fL Immature Gran % (Auto) 0.3 (0.0-0.4) % Neut % (Auto) 69.0 (45-73) % Lymph % (Auto) 20.1 (20-40) % [place] % (Auto) 7.0 (2-11) % Eos % (Auto) 3.1 (0-4) % Baso % (Auto) 0.5 (0-2) % Lymph # (Auto) 2.1 (1.2-4.9) X10*3/uL [place] # (Auto) 0.7 (0.1-1.2) X10*3/uL Eos # (Auto) 0.3 (0.0-0.4) X10*3/uL Baso # (Auto) 0.1 (0.0-0.2) X10*3/uL Abs Immat Gran (auto) 0.03 (0.00-0.03) X10*3/uL Absolute Neuts (auto) 7.2 (2.0-8.3) x10*3/uL Absolute Nucleated RBC 0.000 (0.0-0.012) X10*3/uL Nucleated RBC % (auto) 0.0 (0.0-0.2) /100WBC Sodium 142 (135-145) mmol/L Potassium 4.0 (3.3-5.1) mmol/L Chloride 108 (96-108) mmol/L Carbon Dioxide 23 (22-29) mmol/L Anion Gap 15 (12-20) BUN 12 (9-16) mg/dL Creatinine 0.55 (0.5-1.4) mg/dL Estim Creat Clear Calc 121.5 Estimated GFR > 60 Random Glucose 101 (60-115) mg/dL Calcium 9.3 (8.4-10.2) mg/dL Magnesium 1.8 (1.6-2.6) mg/dL Total Bilirubin 1.1 H (0.0-1.0) mg/dL AST 41 H (5-31) U/L ALT 59 H (0-31) U/L Alkaline Phosphatase 116 (39-117) U/L Troponin I High Sens 9.2 D (<3.5-17.0) ng/L Total Protein 7.1 (6.5-8.0) g/dL Albumin 4.1 (3.5-5.0) g/dL Influenza Type A (PCR) NEGATIVE (Negative) Influenza Type B (PCR) NEGATIVE (Negative) RSV RNA Qual (PCR) NEGATIVE (Negative) SARS-CoV-2 RNA (RT-PCR) NEGATIVE (Negative) Independent Interpretation I performed an independent interpretation of an: EKG Interpretation: Normal sinus rhythm with heart rate 60 beats per minute T inversion in anterior and lateral leads with no change from previous EKG no acute ischemia Radiology Impression Discussion of test interpretation with radiology: I have reviewed the radiologist's reading. Radiologist Impression: NAD Discharge Plan Discharge Clinical Impression: Chest pain Patient Disposition: Home, Self-Care Instructions: Chest Pain (ED) Additional Instructions: At this time there is no evidence of acute ischemia of your heart It is possible you might have anxiety Continue your medications and follow up with quality improvement engineer Prescriptions: No Action propranolol 60 mg capsule,extended release 24 hr 60 mg PO DAILY Qty: 90 3RF atorvastatin 80 mg tablet 80 mg PO DAILY Qty: 90 3RF lorazepam 0.5 mg tablet 0.5 mg PO BID PRN aspirin [Ecotrin Low Strength] 81 mg tablet,delayed release (DR/EC) 81 mg PO DAILY Qty: 30 0RF escitalopram oxalate 5 mg tablet 15 mg PO DAILY amlodipine 5 mg tablet 5 mg PO QPM Qty: 30 5RF nicotine 14 mg/24 hr patch 24 hour 1 patch transdermal DAILY Qty: 28 0RF nicotine 7 mg/24 hr patch 24 hour 1 patch transdermal Q24H Qty: 28 0RF Rx Instructions: Start after 4 weeks of 14 mg patch has completed Print Language: Welsh
[2024-09-11 17:31] LABS: MANUAL DIFF FLAG NO
[2024-09-11 17:44] LABS: Basophils Absolute Auto 0.1 X10*3/uL (0.0-0.2); Basophils Percent Auto 0.5 % (0-2); Eosinophils Absolute Auto 0.3 X10*3/uL (0.0-0.4); Eosinophils Percent Auto 3.1 % (0-4); Hematocrit 37.1 % (37.0-47.0); Hemoglobin 12.9 g/dl (12.0-16.0); Imm Gran Abs Auto 0.03 X10*3/uL (0.00-0.03); Imm Gran Pct Auto 0.3 % (0.0-0.4); Lymphocytes Absolute Auto 2.1 X10*3/uL (1.2-4.9); Lymphocytes Percent Auto 20.1 % (20-40); Mean Corpuscular HGB Conc 34.8 g/dl (31.0-35.0); Mean Corpuscular Hemoglobin 31.9 pg (27.0-33.0); Mean Corpuscular Volume 91.6 fL (80.0-98.0); Mean Platelet Volume 8.5 fL (9.4-12.3); Monocytes Absolute Auto 0.7 X10*3/uL (0.1-1.2); Neutrophils Absolute Auto 7.2 x10*3/uL (2.0-8.3); Platelet Count 256 X10*3/uL (160-400); Red Blood Count 4.05 X10*6/uL (4.20-5.50); Red Cell Distribution Width 12.3 % (11.0-16.0); White Blood Count 10.5 X10*3/uL (4.8-10.8)
[2024-09-11 17:49] LABS: Alanine Aminotransferase 59 U/L (0-31); Albumin Level 4.1 g/dL (3.5-5.0); Alkaline Phosphatase 116 U/L (39-117); Anion Gap 15 (12-20); Aspartate Amino Transferase 41 U/L (5-31); Bilirubin Total 1.1 mg/dL (0.0-1.0); Blood Urea Nitrogen 12 mg/dL (9-16); Calcium 9.3 mg/dL (8.4-10.2); Carbon Dioxide 23 mmol/L (22-29); Chloride 108 mmol/L (96-108); Creatinine Clr Calc Pharmacy 121.5; Estimated Glomerular Filt Rate > 60; Glucose Random 101 mg/dL (60-115); Magnesium 1.8 mg/dL (1.6-2.6); Sodium 142 mmol/L (135-145); Total Protein 7.1 g/dL (6.5-8.0)
[2024-09-11 17:56] LABS: Troponin-I High Sensitivity 9.2 ng/L (<3.5-17.0)
[2024-09-11 18:18] LABS: Influenza A PCR NEGATIVE (Negative); Influenza B PCR NEGATIVE (Negative); Resp Syncy Virus RNA Qual PCR NEGATIVE (Negative); SARS COV2 PCR INHOUSE NEGATIVE (Negative)
--- OUTSIDE RECORDS SUMMARY | 2024-09-11 18:49 | XMS_ITS ---
Author Organization [employer] [facility] Address [address] [place] [address] Care Team Providers Care Physician'S Aide Name Role Phone Amber Contreras Unavailable [phone] Allergies No Known Allergies Results Component Value Reference Range Notes Urinalysis Reviewed date:09/16/2023 09:11:05 AM Interpretation: Performing Lab: Notes/Report: PH 5.0 PROTEIN Neg GLUCOSE Neg BLOOD Neg [id number] IGP No Culture 30 Plus Reviewed date:09/19/2023 04:19:35 PM Interpretation: Performing Lab:[facility] Cristin, Sergio Ivis Lopez, [address], [place], Phone - [phone], Director - [facility] Notes/Report: Clinical Information:Vaginal/Cervical, LMP: Men o [id number] Dates / Results....08/09/20 NIL, Neg HPV Other..............Post Menopausal No. of containers..01 ThinPrep Vial DIAGNOSIS: NEGATIVE FOR IN TRAEPITHELIAL LESION OR MALIGNANCY. Specimen adequacy: Satisfactory for evaluation. Endocervical and/or squamous metaplastic cells (endocervical component) are present. Clinician provided ICD10: Z0 1.419 Performed by: Sheri santa, Insole Filler (ASCP) . . Note: The Pap smear [...] Ivis Lopez, [address], [place], Phone - [phone], Director - [facility] Notes/Report: Clinical Information:Vaginal/Cervical, LMP: Men o [id number] Dates / Results....08/09/20 NIL, Neg HPV Other..............Post Menopausal No. of containers..01 ThinPrep Vial REASON FOR VISIT Annual SENIOR BUDGET ANALYST Physical, Annual SENIOR BUDGET ANALYST Physical 50-59* Medications Medication SIG (Take, Route, [...] 09/16/2023 Encounters Encounter Location Date Provider Diagnosis [address] [address] 09/16/2023 Amber Contreras Encounter for gynecological examination [...] Provider Name:Amber obando, 09/16/2024 08:20:00 AM, [address], [address], [place], [address], Progress Notes * PAULINA JACOBOOB:1970 (52 yo F)Acc No.[id number]:09/16/2023 PROGRESS NOTES Patient:?ANDER JACOBO Appointment Provider:?Amber obando M.D. :1970???Age:52 Y???Sex:Female D ate:09/16/2023 Address:[address] [place] [address], [id number] Subjective: * Chief Complaints: * ???Annual SENIOR BUDGET ANALYST PhysicalAnnual SENIOR BUDGET ANALYST Physical 50-59* * HPI: ???New/Follow-up Patient Consult:? [...] adequate calcium via diet and supplementation ?Significant SENIOR BUDGET ANALYST problems:?no significant steel placer symptoms or problems * ROS:?general:?no?chest pain.?no?palpitations.?no?headache.?no?cough.?no?shortness of breath.?no?fever.?no?unexplained weight loss.?no?nausea/vomiting.?no?change in bowel movements.?no blood in stool.?no?genitourinary complaints.?no?skin complaints.? * Medical History:? 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 * OB History:?Total pregnancies?2.?Total living children?1.?NVD?1.?(s)?1.? * Surgical History:?Abortiom 2 001Angiogram 07/2016Lymph Node Biopsy Underarm, Due to Swelling Breast Biopsy Cyst Removal x 2 Left Elbow, Neck 1992 & 1999Varicose Veins Laser & Injections 06/2011 * Hospitalization/Major Diagno stic Procedure:?1 Vaginal Delivery * Family History:?Mother: dennise e, breast cancer.?Father: alive, [place], stent put in at age 71.? * [...] status: . ?Natural support system: yes. 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 ?Sexually active: yes, monogamous relationship. * Medications:?TakingEscitalop [...] * Images: Billing Information: * Visit Code:? 89736 Preventive Care New Pt. Age 40-64. 50058 Preventive Care Est Pt. Age 40-64. * Procedure Codes:? * Sign off status: Completed true * Appointment Provider:?Amber Contreras M.D. Date:?09/16/2023 Generated for Tati bolton/Tim/eTmicaelasmitting on:?09/11/2024 06:48 PM EDT History and Physical Notes * [...] ate calcium via diet and supplementation Significant SENIOR BUDGET ANALYST problems:: n o significant steel placer symptoms or problems Examination Category Sub-Category Detail [...]
--- OUTSIDE RECORDS SUMMARY | 2024-09-11 18:49 | XMS_ITS | Patient Health Record ---
Author Organization [employer] [facility] Address [address] [place] [address] Care Team Providers Care Warranty Administrator Name Role Phone Amber Contreras Unavailable [phone] Allergies No Known Allergies Results Component Value Reference Range Notes Urinalysis Reviewed date:09/16/2023 09:11:05 AM Interpretation: Performing Lab: Notes/Report: PH 5.0 PROTEIN Neg GLUCOSE Neg BLOOD Neg [id number] IGP No Culture 30 Plus Reviewed date:09/19/2023 04:19:35 PM Interpretation: Performing Lab:[facility] [place], Sergio Ivis Lopez, [address], [place], Phone - [phone], Director - [facility] Notes/Report: Clinical Information:Vaginal/Cervical, LMP: Men o [id number] Dates / Results....08/09/20 NIL, Neg HPV Other..............Post Menopausal No. of containers..01 ThinPrep Vial DIAGNOSIS: NEGATIVE FOR IN TRAEPITHELIAL LESION OR MALIGNANCY. Specimen adequacy: Satisfactory for evaluation. Endocervical and/or squamous metaplastic cells (endocervical component) are present. Clinician provided ICD10: Z0 1.419 Performed by: Sheri santa, Plasterer Stucco (ASCP) . . Note: The Pap smear [...] Ivis Lopez, [address], [place], Phone - [phone], Director - [facility] Notes/Report: Clinical Information:Vaginal/Cervical, LMP: Men o [id number] Dates / Results....08/09/20 NIL, Neg HPV Other..............Post Menopausal No. of containers..01 ThinPrep Vial Reason For Referral No Information Medications Medication [...] Status W/U Status Risk Notes Problem Menopause (135193544) Menopausal and female climacteric states (N95.1) Active confirmed Problem Postmenopausal atrophic vaginitis (N95.2) Active confirmed Problem Menopause (155251864) Menopausal and female climacteric states (N95.1) Active confirmed Vital Signs Temperature 97.5 degrees Fahrenheit 09/16/2023 Blood pressure diastolic 82 mm Hg 09/16/2023 Height 64.75 in 09/16/2023 Blood pressure systolic 114 mm Hg 09/16/2023 Weight 174 lbs 09/16/2023 BMI 29.18 kg/m2 09/16/2023 Encounters Encounter Location Date Provider Diagnosis [facility] [employer] [place] [address] [place] [address] [address] 09/16/2023 Amber Contreras Encounter for gynecological examination (general) (routine) without abnormal findings Z01.419 ; Encounter for screening mammogram for malignant neoplasm of breast Z12.31 ; Family history of malignant neoplasm of breast Z80.3 ; Dense breasts, unspecified R92.30 and Personal history of other diseases of the female genital tract Z87.42 [facility] [place] [address] [place] [address] [address] 09/16/2023 Amber Contreras Assessments Encounter Date Diagnosis [...] 08:20:00 AM, [address], [address], [place], [address], Insurance Providers Payer Name Payer Address Payer Phone Subscriber Number Group Number Insured Name Patient Relationship to Insured Coverage Start Date Coverage End Date [facility] [address] [place] [address] [id number] 11 ANDER JACOBO Self - patient is [...]
[2024-09-11 19:24] VITALS: BP 126/76; PULSE 61; RESP 17; O2SAT 96
[2024-09-11 22:00] VITALS: BP 126/76; PULSE 61; RESP 17; TEMP 36.7; O2SAT 96
== END 2024-09-11 22:04 | disposition home or self-care (01) ==
PROVIDERS: Nurse Practitioner Family; Emergency Provider Internal Medicine
DX: R07.9 Chest pain, unspecified (principal); I25.10 Atherosclerotic heart disease of native coronary artery without angina pectoris; Z03.818 Encounter for observation for suspected exposure to other biological agents ruled out
CPT/HCPCS: 0241U; 71046; 80053; 83735; 84484; 85025; 93005; 99283; 99284

== ENCOUNTER → 2024-09-11 16:44 | Outpatient (BNV) | payer OTHER, SELFPAY | PROVIDERS: Emergency Provider Internal Medicine; Visit Provider Internal Medicine Cardiovascular Disease | DX: R07.9 Chest pain, unspecified (principal); R94.31 Abnormal electrocardiogram [ECG] [EKG] | CPT/HCPCS: 93010 ==

== ENCOUNTER → 2024-09-11 17:06 | Outpatient (BNV) | payer OTHER, SELFPAY | PROVIDERS: Visit Provider Radiology Diagnostic Radiology | DX: R07.9 Chest pain, unspecified (principal) | CPT/HCPCS: 71046 ==

== ENCOUNTER 2024-09-28 14:08 | Outpatient (AMB) | payer OTHER, SELFPAY ==
--- OUTSIDE RECORDS SUMMARY | 2024-09-28 14:13 | XMS_ITS | Patient Health Record ---
Author Organization [employer] [facility] Address [address] [address] Care Team Providers Care Director Of Home Health Services Name Role Phone Marily Ramos MD Primary Care Provider Amber Maynard Unavailable [phone] Allergies No Known Allergies Results Component Value Reference Range Notes Urinalysis Reviewed date:09/16/2024 08:39:18 AM Interpretation: Performing Lab: Notes/Report: PH 5.0 PROTEIN Neg GLUCOSE Neg BLOOD Neg Reason For Referral No Information Medications Medication SIG (Take, Route, Frequency, Duration) Notes Start Date End Date Status amLODIPine Besylate 5 MG 1 tablet Orally Once a day for 30 day(s) 09/16/2024 Active LORazepam 0.5 MG Oral for 15 Days Active Multi-Vitamin - 1 tablet Orally Once a day for 30 day(s) Active Atorvastatin Calcium 80 MG 1 tablet Oral ly Once a day for 30 day(s) Active Propranolol HCl 60 MG 1 tablet on an emp ty stomach Orally Once a day Active Escitalopram Oxalate 10 MG 1 tablet Oral ly Once a day Active Social History Tobacco Use: Social History Observation Description Date Details (start date - stop date) Current Smoker NA - NA Sexual History Question Answer Notes Had sex in the past 12 months (vaginal, oral, or anal)? Yes with Men only Prevention strategies discussed: Other AUDIT-C (Standard) Question Answer Notes Did you have a drink contain ing alcohol in the past year? Yes How often did you have a dri nk containing alcohol in the past year? 2 to 3 times a week (3 points) How many drinks did you have on a typical day when you were drinking in the past year? 1 or 2 drinks (0 point) How often did you have six o r more drinks on one occasion in the past year? Never (0 point) Points 3 Interpretation Positive Tobacco Control (Standard) Question Answer Notes Tobacco use: Current smoker How often do you smoke cigarettes? Some days, bu t not every day How many cigarettes a day do you smoke? 5 or les s Problems Problem Type SNOMED Code ICD Code Onset Dates Problem Status W/U Status Risk Notes Problem Menopause (219873370) Menopausal and female climacteric states (N95.1) Active confirmed Problem Postmenopausal atrophic vaginitis (84269357) Postmenopausal atrophic vaginitis (N95.2) Active confirmed Problem Menopause (287216233) Menopausal and female climacteric states (N95.1) Active confirmed Vital Signs Height 64.75 in 09/16/2024 Weight 171 lbs 09/16/2024 BMI 28.67 kg/m2 09/16/2024 Encounters Encounter Location Date Provider Diagnosis [address] [address] 09/16/2024 Amber Contreras Encounter for gynecological examination (general) (routine) without abnormal findings Z01.419 ; Encounter for screening mammogram for malignant neoplasm of breast Z12.31 ; Personal history of other diseases of the female genital tract Z87.42 ; Family history of malignant neoplasm of breast Z80.3 and Dense breasts, unspecified R92.[address] [address] 09/16/2024 Amber Contreras [address] [address] 09/28/2024 Amber Contreras Assessments Encounter Date Diagnosis (ICD Code) Assessment Notes Treatment Notes Treatment Clinical Notes Section Notes 09/16/2024 Encounter for gynecological examination (general) (routine) without abnormal findings (ICD-10 - Z01.419) NO PAP TEST, DUE IN 2026. 09/16/2024 Encounter for screening mammogram for malignant neoplasm of breast (ICD-10 - Z12.31) REGULAR MAMMOGRAMS AND SBE'S WERE RECOMMENDED. 09/16/2024 Personal history of other diseases of the female genital tract (ICD-10 - Z87.42) DISCUSSED PREVIOUS ATYPICAL ENDOCERVICAL CELLS NOTED ON PAP TEST AND NEGATIVE WORK UP AND NEGATIVE SUBSEQUENT PAP TESTS. REPEAT PAP TEST IN 2026. 09/16/2024 Family history of malignant neoplasm of breast (ICD-10 - Z80.3) HER MOTHER HAD BREAST CA. 09/16/2024 Dense breasts, unspecified (ICD-10 - R92.30) HER BREAST CA RISK IS HIGH. SCHEDULE SCREENING BREAST MRI NOW SINCE PA HAS BEEN APPROVED. PAT WAS ADVISED TO BRING HER NOTICE TO US SO WE CAN WORK ON THIS. WILL CONTINUE TO GET BREAST MRI'S Q 3 YEARS AND SCREENING BREAST US 2 OF THE 3 YEARS. Plan Of Treatment Pending Test Test Name Order Date DIAGNOSTIC MAMMOGRAM, LEFT BREAST 2022 [facility] Digital Mammo Screening 09/07/2022 MM Digital Mammo Screening 04/22/2018 MM Digital Mammo Screening 08/09/2020 MM Digital Mammo Screening 09/06/2021 MM Digital Mammo Screening 09/16/2023 MM Digital Mammo Screening 09/16/2024 Screening Bilateral Breast Ultrasound Screening Bilateral Breast Ultrasound Left Breast Ultrasound 09/07/2022 Next Appt Details Provider Name:Amber obando, 09/22/2025 08:20:00 AM, [address], [address], [place], [address], Insurance Providers Payer Name Payer Address Payer Phone Subscriber Number Group Number Insured Name Patient Relationship to Insured Coverage Start Date Coverage End Date [facility] [address] [place] [address] [id number] 11 ANDER JACOBO Self - patient is the insured Medical (General) History Medical History History ICD Code Emotional/mental problems Hyperlipidemia, unspecified E78.5 Menopausal and female climacteric states N95.1 Inconclusive mammogram R92.2 Postmenopausal atrophic vaginitis N95.2 Personal history of other diseases of th e female genital tract Z87.42 Family history of malignant neoplasm of breast Z80.3 Mammographic heterogeneous density, bila teral breasts R92.333 Dense breasts, unspecified R92.30 Surgical History Surgery Date(Month/Year) 2000 Angiogram 07/2016 Lymph Node Biopsy Underarm, Due to Swell ing Breast Biopsy Cyst Removal x 2 Left Elbow, Neck 1992 & 1999 Varicose Veins Laser & Injections 06/2011 Hospitalization History Reason Date(Month/Year) 1 Vaginal Delivery
[2024-09-28 14:19] VITALS: BP 108/70; PULSE 63; RESP 18; O2SAT 99; BMI 28.5
--- NOTE | 2024-09-28 14:19 | MHC.PC.OV ---
Vital Signs 09/28/24 14:19 Height 5 ft 5 in Weight 171 lb BMI 28.5 BP 108/70 Blood Pressure Location Lt brachial Position Sitting Respiration 18 Pulse 63 Pulse Source Pulse Oximeter Pulse Oximetry (%) 99 Oxygen Delivery Method Room Air Intake Visit Reasons: 2m follow up Intake Note: Pt is here today for 2 months follow up visit. Allergies No Known Allergies [No Known Allergies*] Allergy (Verified 09/28/24 14:39) Tobacco use date assessed: 07/28/24 Dental Screening Dental Screen Date: 07/28/24 HPI 2m follow up HPI Details Patient presents for the follow-up of ER visit for the episode of chest pain diagnosed with anxiety. Patient is established with a childcare worker for nonobstructive coronary artery disease. Patient is established with counselor and a prescriber for escitalopram. She denies depression insomnia is planning to start regular exercise. Patient has been under stress at work starting a new project. [facility] Medical History Cubital tunnel syndrome Neck pain NSVT (nonsustained ventricular tachycardia) Elevated LFTs Coronary artery disease Mammogram normal Normal Pap smear Annual physical exam Anxiety disorder Palpitations Family History Father CAD (coronary artery disease) Myocardial infarction CVD (cardiovascular disease) Mother COPD (chronic obstructive pulmonary disease) Smoker Breast cancer Maternal Grandfather CAD (coronary artery disease) CVD (cardiovascular disease) Maternal Grandmother Breast cancer Paternal Grandfather COPD (chronic obstructive pulmonary disease) Paternal Aunt CVD (cardiovascular disease) Myocardial infarction Son No problems noted. Sister No problems noted. Sister No problems noted. Sister No problems noted. 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 1. Little interest or pleasure in doing things: not at all 2. Feeling down, depressed, or hopeless: not at all 3. Trouble falling or staying asleep, or sleeping too much: not at all 4. Feeling tired or having little energy: several days 5. Poor appetite or overeating: not at all 6. Feeling bad about yourself - or that you are a failure or have let yourself or your family down: several days 7. Trouble concentrating on things, such as reading the newspaper or watching television: not at all 8. Moving or speaking so slowly that other people could have noticed. Or the opposite - being so fidgety or restless that you have been moving around a lot more than usual: not at all 9. Thoughts that you would be better off or of hurting yourself in some way: not at all Total score: 2 Depression Screening Interpretation: Negative Depression Screening Done: Yes 56312 - PHQ-9 Billing: Yes Source: Developed by Drs. Lev Pfeiffer, Malu Crawford, Cain Garcia and colleagues, with an educational bnia from [employer] Thrive Questionnaire Date Thrive assessed: 09/28/24 I am a: Patient What is your living situation today?: I have a steady place to live Within the past 12 months, did the food you bought not last and you didn't have the money to get more?: Never true Within the past 12 months, did you worry whether your food would run out before you got money to buy more?: Never true Do you have trouble paying for medicines?: No Do you have trouble getting transportation to medical appointments?: No Do you have trouble paying your heating and electricity bill?: No Do you have trouble taking care of your child, family member or friend?: No Do you have trouble with day-to-day activities such as bathing, preparing meals, shopping, managing finances, etc.?: No Are you currently unemployed and looking for a job?: No Are you interested in more education?: Yes Please select the resources that you would like help with: None Currently or been in a relationship where the following occur: No concerns reported THRIVE Score: 0 AUDIT C Alcohol Use Questionnaire (AUDIT-C) 1. How often do you have a drink containing alcohol?: 4 or more times a week Total Score: 4 CTAHI-7 AMB Questionnaire CATHI-7 Date CATHI - 7 assessed: 09/28/24 Feeling nervous, anxious, or on edge: 1 = Several days Not being able to stop or control worryin = Several days Worrying too much about different things: 1 = Several days Trouble relaxin = Several days Being so restless that it is hard to sit still: 0 = Not at all Becoming easily annoyed or irritable: 1 = Several days Feeling afraid as if something awful might happen: 1 = Several days Total CATHI-7 score (0-4 normal; 5-9 mild; 10-14 moderate; 15-21 severe): 6 Source: Developed by Drs. Lev Pfeiffer, Malu Crawford, Cain Garcia and colleagues, with an educational bina from [employer] Review of Systems Const All systems reviewed & are unremarkable except as noted in HPI and below Eyes Reports no additional complaints ENT Reports no additional complaints Card Reports no additional complaints Resp Reports no additional complaints GI Reports no additional complaints Reports no additional complaints Physical exam (Primary Care) Vital Signs: Last Vital Signs Pulse 63 09/28/24 14:19 Resp 18 09/28/24 14:19 BP 108/70 09/28/24 14:19 Pulse Ox 99 09/28/24 14:19 Oxygen Delivery Method Room Air 09/28/24 14:19 BMI result Body Mass Index 28.5 Tobacco/Smoking Status: Tobacco use Status Tobacco use date assessed 07/28/24 09/28/24 14:20 Patient Tobacco Use Status Former Tobacco user 09/28/24 14:20 e-Cigarette/Vaping Use Never Used 09/28/24 14:20 PHQ-9: PHQ-9 Score PHQ-9: Total score 2 09/28/24 14:20 Depression Screening Interpretation: Negative Thrive Assessment: Date of Thrive Assessment Date Thrive assessed 09/28/24 09/28/24 14:42 Currently or been in a relationship where the following occur: No concerns reported Const General: no acute distress HENMT Face and sinus: Yes normal facial exam Neck Neck: Yes no lymphadenopathy and Yes supple Resp Effort & Inspection: normal respiratory effort Auscultation: clear to auscultation bilaterally Cardio Rhythm: regular rhythm Heart sounds: S1 normal heart sound present and S2 normal heart sound present GI Inspection: Yes normal to inspection Coding Level of Care Code Est Pt Level 4 (31814) Diagnoses Annual physical exam Z00.00 Hyperlipemia E78.5 Coronary artery disease I25.10 Anxiety disorder F41.9 Additional Codes PHQ-9 - 12227 - PHQ-9 Billing: Yes ([id number]) Assessment & Plan Assessment & Plan (1) Annual physical exam: Code(s): Z00.00 - Encounter for general adult medical examination without abnormal findings Category: Medical Plan: Patient will return for physical in 3 months (2) Hyperlipemia: Comment: The goal of LDL less than 70 Code(s): E78.5 - Hyperlipidemia, unspecified Category: Medical Plan: Continue high dose of statin (3) Coronary artery disease: Comment: nonobstructive stenosis LAD cardiac catheterization 2016, managed medically, repeat cath no change, Echo nl 07/23/2024 [facility] for + troponin , started on Amlodipine 07/23/24 Code(s): I25.10 - Atherosclerotic heart disease of [place] coronary artery without angina pectoris Category: Medical Plan: Continue current medications follow-up with the Cardiology (4) Anxiety disorder: Comment: follows up with Psychiatry Code(s): F41.9 - Anxiety disorder, unspecified Category: Medical Plan: Continue escitalopram counseling stress management, started regular physical activity and mindfulness discussed with the patient Orders: Orders Complete Blood Count Auto Diff 3 Months E78.5 - Hyperlipidemia, unspecified, Z00.00 - Encounter for general adult medical examination without abnormal findings Lipid Panel 3 Months E78.5 - Hyperlipidemia, unspecified, Z00.00 - Encounter for general adult medical examination without abnormal findings TSH reflex Free T4 3 Months E78.5 - Hyperlipidemia, unspecified, Z00.00 - Encounter for general adult medical examination without abnormal findings Comprehensive [place]. Panel Fast 3 Months E78.5 - Hyperlipidemia, unspecified, Z00.00 - Encounter for general adult medical examination without abnormal findings Vitamin D 25-OH Total 3 Months E78.5 - Hyperlipidemia, unspecified, Z00.00 - Encounter for general adult medical examination without abnormal findings
== END 2024-09-28 15:24 | disposition home or self-care (01) ==
LOC: HO.HMCC 14:09
PROVIDERS: PCP Internal Medicine; Visit Provider Internal Medicine
DX: Z00.00 Encounter for general adult medical examination without abnormal findings (principal); E78.5 Hyperlipidemia, unspecified; I25.10 Atherosclerotic heart disease of native coronary artery without angina pectoris; F41.9 Anxiety disorder, unspecified

== ENCOUNTER → 2024-09-28 14:08 | Outpatient (BNVA) | payer OTHER, SELFPAY | PROVIDERS: PCP Internal Medicine; Visit Provider Internal Medicine | DX: Z00.00 Encounter for general adult medical examination without abnormal findings (principal); E78.5 Hyperlipidemia, unspecified; I25.10 Atherosclerotic heart disease of native coronary artery without angina pectoris; F41.9 Anxiety disorder, unspecified; Z79.899 Other long term (current) drug therapy | CPT/HCPCS: 96127 ==

== ENCOUNTER 2024-12-28 14:34 | Outpatient (AMB) | payer OTHER, SELFPAY ==
[2024-12-28 14:52] VITALS: BP 120/78; PULSE 55; BMI 27.5
--- NOTE | 2024-12-28 14:52 | MHC.OFFVIS ---
Vital Signs 12/28/24 14:52 Height 5 ft 5 in Weight 165 lb 5.547 oz BMI 27.5 BP 120/78 Blood Pressure Location Lt brachial Position Sitting Pulse 55 Intake Visit Reasons: r/s 11/12/24 3 mos followup Intake Note: 3 month follow-up has been in the ED twice [employer] Required: No Allergies No Known Allergies (No Known Allergies*) Allergy (Verified 09/28/24 14:39) Medication List - Last Reconciled 12/28/24 by Justyn Durán MD amlodipine 5 mg PO QPM aspirin (Ecotrin Low Strength) 81 mg PO DAILY atorvastatin 80 mg PO DAILY escitalopram oxalate 15 mg PO DAILY lorazepam 0.5 mg PO BID PRN nicotine 1 patch transdermal DAILY nicotine 1 patch transdermal Q24H propranolol ER 60 mg PO DAILY HPI Comments Details: Magdalena comes for follow-up after recent presentation in the emergency room with chest pain. This was in September. She says she was at work and was explaining to 1 of the coworkers about her prior situation with chest pain and abnormal troponins and then she says she might have going to do panic attack but she develops severe chest pain. She then call fire department and dated EKGs which are similar to prior EKGs although because of her severe chest pain she was taken to the emergency room. She took aspirin as well as lorazepam. In the emergency room a troponins were negative. EKGs unchanged and she was then released home. She remains concerned about her chest pain syndrome. These happen under stressful situations. Could be panic attack. Denies any exertional chest pain. Takes all her medications. [facility] Medical History Cubital tunnel syndrome Neck pain NSVT (nonsustained ventricular tachycardia) Elevated LFTs Coronary artery disease Mammogram normal Normal Pap smear Annual physical exam Anxiety disorder Palpitations Family History Father CAD (coronary artery disease) Myocardial infarction CVD (cardiovascular disease) Mother COPD (chronic obstructive pulmonary disease) Smoker Breast cancer Maternal Grandfather CAD (coronary artery disease) CVD (cardiovascular disease) Maternal Grandmother Breast cancer Paternal Grandfather COPD (chronic obstructive pulmonary disease) Paternal Aunt CVD (cardiovascular disease) Myocardial infarction Son No problems noted. Sister No problems noted. Sister No problems noted. Sister No problems noted. 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 Housing: House Alcohol intake: current Alcohol intake frequency: holidays/special occasions only Alcohol type: wine Patient Tobacco Use Status: Former Tobacco user e-Cigarette/Vaping Use: Never Used service: No Current occupational status: employed Cognitive needs: No Hearing needs: No Vision needs: Yes Review of Systems Const Denies chills, Denies fatigue, Denies fever(s), Denies frequent falls, Denies weakness, Denies weight gain and Denies weight loss ENT Denies dizziness Card Denies chest pain, Denies leg edema, Denies lightheadedness, Denies palpitations, Denies dyspnea, Denies dyspnea on exertion, Denies orthopnea and Denies other (loss of consciousness) Resp Denies cough, Denies dyspnea and Denies dyspnea on exertion GI Denies hematochezia and Denies change in stool character Musc Denies abnormal gait, Denies muscle weakness, Denies numbness, Denies radiating pain into limb and Denies tingling Neuro Denies abnormal gait, Denies dizziness, Denies frequent falls, Denies numbness, Denies tingling and Denies weakness Endo Denies fatigue and Denies palpitations Physical Exam Vital Signs: Last Vital Signs Pulse 55 12/28/24 14:52 BP 120/78 12/28/24 14:52 BMI result Body Mass Index 27.5 Const General: cooperative, comfortable, no acute distress, alert and awake Nutritional Appearance: average body habitus Orientation/consciousness: patient oriented x3 Limitations: no limitations Neck Neck: Yes trachea midline, Yes supple and Yes no JVD Resp Effort & Inspection: normal respiratory effort Auscultation: clear to auscultation bilaterally Cardio Jugular venous distension: no JVD Palpation: normal PMI Rate: regular rate Rhythm: regular rhythm Heart sounds: S1 normal heart sound present and S2 normal heart sound present GI Auscultation: normal bowel sounds Skin General skin exam: no rashes or lesions noted Neuro General: patient oriented x3 and no focal motor deficits Extrem General: Yes no clubbing, cyanosis or edema Psych Appearance: grossly normal Assessment & Plan Assessment & Plan (1) Coronary artery disease: Comment: nonobstructive stenosis LAD cardiac catheterization 2016, managed medically, repeat cath no change, Echo nl 07/23/2024 [facility] for + troponin , started on Amlodipine 07/23/24 Code(s): I25.10 - Atherosclerotic heart disease of [place] coronary artery without angina pectoris Category: Medical Plan: Nonobstructive CAD in this middle-aged woman with recurrent chest pain syndrome and presentation to ED. Her baseline EKGs normal with T-wave inversion in the anterior leads. This is always going to be abnormal. There was no clear cause for her abnormal EKG although discussed that this is probably going to lead to unnecessary future investigations. Chest pain could be related to panic/anxiety attack or coronary vaso spasm. Continue with current medications. Advised to avoid ED presentations although this will be difficult for her. Discussed about stress mitigation strategies. Discussed that she is on good medical therapy at this point time including aspirin, high-intensity statin therapy. Continue amlodipine for vasospastic angina if possible. Also will help with management of blood pressure which is currently well optimized. Target goal LDL less than 60 mg/dL. Will also prescribe her sublingual nitroglycerin to see if this will resolve her symptoms that would lead to reduction in ED presentation. Will follow up in the clinic otherwise in 1 year's time, sooner p.r.n.. Thank you for allowing me to partake in her care Coding Level of Care Code Est Pt Level 4 (40690) Complex EM visit Add On G2211 Diagnoses Coronary artery disease I25.10
--- OUTSIDE RECORDS SUMMARY | 2024-12-28 15:17 | XMS_ITS | Patient Health Record ---
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 Name Role Phone Marily Ramos MD Primary Care Provider Amber Maynard Unavailable [phone] Allergies No Known Allergies Results Component Value Reference Range Notes Urinalysis Reviewed date:09/16/2024 08:39:18 AM Interpretation: Performing Lab: Notes/Report: PH 5.0 PROTEIN Neg GLUCOSE Neg BLOOD Neg Reason For Referral No Information Medications Medication SIG (Take, Route, Frequency, Duration) Notes Start Date End Date Status amLODIPine Besylate 5 MG 1 tablet Orally Once a day; Duration: 30 day(s) 09/16/2024 Active LORazepam 0.5 MG Oral; Duration: 15 Days Active Multi-Vitamin - 1 tablet Orally Once a day; Duration: 30 day(s) Active Atorvastatin Calcium 80 MG 1 tablet Oral ly Once a day; Duration: 30 day(s) Active Propranolol HCl 60 MG [...] Status W/U Status Risk Notes Problem Menopause (912295749) Menopausal and female climacteric states (N95.1) Active confirmed Problem Postmenopausal atrophic vaginitis (36370484) Postmenopausal atrophic vaginitis (N95.2) Active confirmed Problem Menopause (414237192) Menopausal and female climacteric states (N95.1) Active confirmed Vital Signs Height 64.75 in 09/16/2024 Weight 171 lbs 09/16/2024 BMI 28.67 kg/m2 09/16/2024 Encounters Encounter Location Date Provider Diagnosis [address] [address] 09/16/2024 Amber Contreras Encounter for gynecological examination (general) (routine) without abnormal findings Z01.419 ; Encounter for screening mammogram for malignant neoplasm of breast Z12.31 ; Personal history of other diseases of the female genital tract Z87.42 ; Family history of malignant neoplasm of breast Z80.3 and Dense breasts, unspecified R92.[address] [address] 09/16/2024 Amber Contreras [address] [address] 09/28/2024 Amber Contreras Assessments Encounter Date Diagnosis [...] Ultrasound 09/07/2022 Next Appt Details Provider Name:Amber Belkis obando, 09/22/2025 08:20:00 AM, [address] [facility], [address], [place], [address], Insurance Providers Payer Name Payer Address Payer Phone Subscriber Number Group Number Insured Name Patient Relationship to Insured Coverage Start Date Coverage End Date [facility] [address] [place] [address] [id number] ANDER JACOBO Self - patient is [...]
--- OUTSIDE RECORDS SUMMARY | 2024-12-28 15:17 | XMS_ITS | Clinical Summary ---
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 02/11/2022 Active escitalopram oxalate (LEXAPRO) 10 MG tablet Take 10 mg by mouth daily. 01/06/2022 Active LORazepam (ATIVAN) 0.5 MG tablet Take 1 tablet by mouth 2 (two) times a day as needed. 01/11/2022 Active propranoloL (INDERAL LA) 60 mg 24 hr capsule Take 1 capsule by mouth daily. 01/11/2022 Active aspirin 81 MG EC tablet Take 1 tablet by mouth daily. Active Social History Tobacco Use Types Packs/Day Years Used Date Smoking Tobacco: Never Assessed Education Answer Date Recorded Are you interested in more education? Not on luke e 09/08/2022 Are you concerned about learning? Not on file 09/08/2022 No 09/08/2022 No 09/08/2022 Digital Access Answer Date Recorded No 10/07/2022 No 10/07/2022 No 10/07/2022 Reliable internet access at home? Not on file 10/07/2022 Device with a working camera? Not on file Comments Unknown Sex and Gender Information Value Date Recorded Sex Assigned at Female 02/27/2022 4:36 PM EDT Legal Sex Female 4:16 PM EDT Gender Identity Female 02/27/2022 4:36 PM EDT Sexual Orientation Not on file Last Filed Vital Signs Vital Sign Reading Time Taken Comments Blood Pressure 142/87 02/27/2022 6:26 PM EDT Pulse 63 02/27/2022 6:26 PM EDT Temperature 36.5 C (97.7 F) 02/27/2022 4:35 PM EDT Respiratory Rate 19 02/27/2022 6:26 PM EDT Oxygen Saturation 97% 02/27/2022 6:26 PM EDT Inhaled Oxygen Concentration - - Weight 74.8 kg (165 lb) 02/27/2022 4:35 PM EDT Height 165.1 cm (5' 5 ) 02/27/2022 4:35 PM EDT Body Mass Index 27.46 02/27/2022 4:35 PM EDT Plan of Treatment Health Maintenance Due Date Last Done Comments Adult Td,Tdap Booster 1969 LIPID PANEL 1969 DEPRESSION SCREENING 1981 SMOKING Hx and SMOKELESS TOB ACCO SCREENING 1982 HEPATITIS C SCREENING 11/09/1987 HIV ONE-TIME SCREENING (18-6 5 YEARS) 11/09/1987 PAP SMEAR 1990 MAMMOGRAM 2009 COLOGUARD 2014 COLONOSCOPY 2014 COLORECTAL CANCER SCREENING 2014 FIT TEST 2014 FOBT 2014 SIGMOIDOSCOPY 2014 VIRTUAL COLONOSCOPY 2014 PNEUMOCOCCAL VACCINES (50+ y ears) (1 of 1 - PCV) 11/09/2019 ZOSTER VACCINES (1 of 2) 11/09/2019 COVID-19 VACCINE (1 - 2023-2 5 season) 2024 SCREENING FOR DIABETES 02/27/2025 02/27/2022 HEPATITIS A VACCINES Aged Out No long er eligible based on patient's age to complete this topic HIB VACCINES Aged Out No longer eligi ble based on patient's age to complete this topic MENINGOCOCCAL VACCINES (ACWY) Aged Out No longer eligible based on patient's age to complete this topic MENINGOCOCCAL VACCINES (B) Aged Out N o longer eligible based on patient's age to complete this topic Medical Devices Not on file Insurance [place] [address] HMO Care Teams Petroleum Engineering Professor Relationship Specialty Start Date End Date Marily Ramos MD [address] [place] [address] PCP - General Internal Medicine 02/27/22 Additional Source Comments The information contained in this document represents components of the legal health record. It is not the complete legal health record.[facility]
== END 2024-12-28 15:21 | disposition home or self-care (01) ==
LOC: HO.HCS 14:35
PROVIDERS: PCP Internal Medicine; Visit Provider Internal Medicine Cardiovascular Disease
DX: I25.10 Atherosclerotic heart disease of native coronary artery without angina pectoris (principal)
CPT/HCPCS: 99214; G2211